=== PATIENT | female | born 1955 | race Caucasian/White ===

== ENCOUNTER 2018-01-20 18:57 | Emergency (ER) | payer OTHER ==
[2018-01-20] MEDS ORDERED: NA CHLORIDE 0.9% 1,000 ML ONE (19:25)
[2018-01-20] MEDS ORDERED: METOCLOPRAMIDE 10 MG/2mL INJ ONE (19:25)
[2018-01-20] MEDS ORDERED: KETOROLAC 30 MG/ML INJ ONE (19:25)
[2018-01-20] MEDS ORDERED: DIPHENHYDRAMINE 50 MG/ML VIAL ONE (19:32)
--- NOTE | 2018-01-20 21:00 | ER ---
Nurse's Notes [facility] Name: Una Vickers Age: 62 yrs Sex: Female : 1955 Arrival Date: 01/20/2018 Time: 19:00 Bed 13 Private MD: None, None Diagnosis: Migraine Presentation: 01/20 19:04 Presenting complaint: Patient states: "Migraine for several days and it keeps getting aj1 worse, now IM really sick to my stomach and I can't take my medications" Reports headache, nausea, vomiting, photophobia for the past 2 days. Reports this headache as being similar to previous migraines. Transition of care: patient was not received from another setting of care. Onset of symptoms was January 18, 2018. Risk Assessment: Do you want to hurt yourself or someone else? Patient reports no desire to harm self or others. Initial Sepsis Screen: Does the patient meet any 2 criteria? No. Patient's initial sepsis screen is negative. Does the patient have a suspected source of infection? No. Patient's initial sepsis screen is negative. Care prior to arrival: None. 19:04 Method Of Arrival: Ambulatory [facility] 19:04 Acuity: JENNIFER 3 aj1 Triage Assessment: 19:09 Headache History: The patient has had previous headaches and this one is similar to aj1 previous episodes. General: Appears in no apparent distress. uncomfortable, Behavior is calm, cooperative, appropriate for age. Pain: Complains of pain in right episcopal and left episcopal Pain currently is 10 out of 10 on a pain scale. Pain began 2-3 days ago. Also complains of nausea. Neuro: Level of Consciousness is awake, alert, obeys commands, Oriented to person, place, time, situation, Speech is normal, Reports headache photophobia. Cardiovascular: Patient's skin is warm and dry. Respiratory: Airway is patent Respiratory effort is even, unlabored, Respiratory pattern is regular, symmetrical. Historical: - Allergies: : No Known Allergies; aj1 - Home Meds: 19: baclofen 10 mg Oral tab 1 tab 3 times per day [Active]; nortriptyline 25 mg Oral cap 1 aj1 cap at bedtime [Active]; omeprazole 20 mg Oral cpDR 1 cap once daily [Active]; carbamazepine 200 mg Oral CM12 1 cap 2 times per day [Active]; sumatriptan 100 mg daily [Active]; - PMHx: 19:09 Migraines; GERD; trigeminal neuralgia; aj1 - PSHx: 19:09 Cholecystectomy; Hysterectomy; aj1 - Immunization history:: Flu vaccine is not up to date. - Social history:: Smoking status: Patient/guardian denies using tobacco. - Ebola Screening: : Patient denies travel to an Ebola-affected area in the 21 days before illness onset. Screenin:23 Abuse screen: Denies threats or abuse. Nutritional screening: No deficits noted. ea Tuberculosis screening: No symptoms or risk factors identified. Fall Risk IV access (20 points). Assessment: 19:22 General: Appears in no apparent distress. comfortable, Behavior is calm, cooperative, aa1 appropriate for age. Pain: Complains of pain in left episcopal and right episcopal Pain currently is 10 out of 10 on a pain scale. Quality of pain is described as throbbing, Pain began 1 day ago. Is continuous. Neuro: Level of Consciousness is awake, alert, obeys commands, Oriented to person, place, time, situation, Moves all extremities. Full function Gait is steady, Speech is normal, Facial symmetry appears normal, Pupils are PERRLA, Reports headache photophobia. Respiratory: Airway is patent Respiratory effort is even, unlabored, Respiratory pattern is regular, symmetrical. GI: Reports nausea, vomiting. : No signs and/or symptoms were reported regarding the genitourinary system. EENT: No signs and/or symptoms were reported regarding the EENT system. Derm: Skin is intact, is healthy with good turgor, Skin is pink, warm \\T\\ dry. Musculoskeletal: Capillary refill < 3 seconds. 20:45 Reassessment: Patient appears in no apparent distress at this time. Patient and/or aa1 family updated on plan of care and expected duration. Pain level reassessed. Patient is alert, oriented x 3, equal unlabored respirations, skin warm/dry/pink. Awaiting provider reassessment Patient states symptoms have not improved. 21:08 Reassessment: Patient appears in no apparent distress at this time. Patient is alert, aa1 oriented x 3, equal unlabored respirations, skin warm/dry/pink. Discussed d/c \\T\\ f/u instructions with pt \\T\\ spouse; denies questions or concerns at this time Patient states symptoms have improved. Vital Signs: 19:09 BP 160 / 88; Pulse 78; Resp 18; Temp 97.7(TE); Pulse Ox 97% on R/A; Weight 70.31 kg aj1 (R); Height 5 ft. 2 in. (157.48 cm) (R); Pain 10/10; 20:07 BP 162 / 82; Pulse 71; Resp 18; Pulse Ox 95% ; Pain 9/10; aa1 20:45 BP 160 / 84; Pulse 74; Resp 18; Pulse Ox 96% on R/A; aa1 19:09 Body Mass Index 28.35 (70.31 kg, 157.48 cm) aj ED Course: 19:00 Patient arrived in ED. mr 19:00 None, None is Private Physician. mr 19:06 Triage completed. aj1 19:09 Arm band placed on Patient placed in an exam room. aj1 19:10 Alexei Fajardo PA is PHCP. [facility] 19:10 Abdulaziz Holland MD is Attending Physician. [facility] 19:17 Steph Barragan RN is Primary Nurse. aa1 19:21 Patient has correct armband on for positive identification. Bed in low position. Call aa1 light in reach. Pulse ox on. NIBP on. Warm blanket given. 19:23 Inserted saline lock: 22 gauge in right antecubital area, using aseptic technique. ea 20:31 PHCP role handed off by Alexei Fajardo PA snw 20:31 Kendra Dey FNP-C is PHCP. snw 21:08 No provider procedures requiring assistance completed. IV discontinued, intact, aa1 bleeding controlled, No redness/swelling at site. Pressure dressing applied. Administered Medications: 19:41 Drug: diphenhydrAMINE 12.5 mg Route: IVP; Site: right antecubital; ea 20:08 Follow up: Response: No adverse reaction aa1 19:41 Drug: Ketorolac 30 mg Route: IVP; Site: right antecubital; ea 20:08 Follow up: Response: No adverse reaction; Pain is unchanged, physician notified aa1 19:42 Drug: NS 0.9% 1000 ml Route: IV; Rate: 1 bolus; Site: right antecubital; ea 21:00 Follow up: IV Status: Completed infusion aa1 19:42 Drug: Reglan 20 mg Route: IVP; Site: right antecubital; ea 20:08 Follow up: Response: Nausea is decreased aa1 21:00 Drug: Valium 2 mg Route: PO; ea 21:08 Follow up: Response: Medication administered at discharge. aa1 Outcome: 20:59 Discharge ordered by . lamar 21:08 Discharged to home ambulatory, with family, with significant other. aa1 21:08 Condition: good 21:08 Discharge instructions given to patient, family, significant other, Instructed on discharge instructions, follow up and referral plans. medication usage, Demonstrated understanding of instructions, follow-up care, medications, Prescriptions given X 1. 21:10 Patient left the ED. aa1 Signatures: Radha Miller RN RN aj1 Steph Barragan RN RN aa1 Kendra Dey, CUSTOMER CARE COORDINATOR-C CUSTOMER CARE COORDINATOR-Csnw Alexei Fajardo PA PA jmm Rivera, Maria mr Antunez, Elena, RN RN ea
--- NOTE | 2018-01-20 21:00 | EDPHYS ---
Physician Documentation [facility] Name: Una Vickers Age: 62 yrs Sex: Female : 1955 Arrival Date: 01/20/2018 Time: 19:00 Bed 13 Private MD: None, None ED Physician Abdulaziz Holland HPI: 01/20 19:21 This 62 yrs old Female presents to ER via Ambulatory with complaints of jmm Headache. 19:21 The patient complains of pain to the top of head, forehead, right voodoo, left voodoo, jmm left frontal area and left temporal area. The patient describes the headache as aching. Onset: The symptoms/episode began/occurred gradually, 2 day(s) ago. Associated signs and symptoms: Pertinent positives: nausea, Photophobia. This is a 62 year old female with a history of migraines, trigeminal neuralgia that presents to the ED with headache, vomiting, photosensitivity, for the past 2 days. Patient states she has no relief with home medications. Patient states having similar headaches in the past. . Historical: - Allergies: 19:09 No Known Allergies; aj1 - Home Meds: 19:09 baclofen 10 mg Oral tab 1 tab 3 times per day [Active]; nortriptyline 25 mg Oral cap 1 aj1 cap at bedtime [Active]; omeprazole 20 mg Oral cpDR 1 cap once daily [Active]; carbamazepine 200 mg Oral CM12 1 cap 2 times per day [Active]; sumatriptan 100 mg daily [Active]; - PMHx: 19:09 Migraines; GERD; trigeminal neuralgia; aj1 - PSHx: 19:09 Cholecystectomy; Hysterectomy; aj1 - Immunization history:: Flu vaccine is not up to date. - Social history:: Smoking status: Patient/guardian denies using tobacco. - Ebola Screening: : Patient denies travel to an Ebola-affected area in the 21 days before illness onset. ROS: 20:09 Constitutional: Negative for fever, chills, and weight loss, Cardiovascular: Negative jmm for chest pain, palpitations, and edema, Respiratory: Negative for shortness of breath, cough, wheezing, and pleuritic chest pain, Abdomen/GI: Negative for abdominal pain, nausea, vomiting, diarrhea, and constipation, Back: Negative for injury and pain, MS/Extremity: Negative for injury and deformity, Skin: Negative for injury, rash, and discoloration. 20:09 Neuro: Positive for headache. 20:09 All other systems are negative. Exam: 20:09 Head/Face: atraumatic. Chest/axilla: Normal chest wall appearance and motion. [facility] Cardiovascular: Regular rate and rhythm. No edema appreciated Respiratory: Normal respirations, no respiratory distress appreciated Abdomen/GI: Non distended, soft 20:09 Constitutional: The patient appears in no acute distress, alert, awake. 20:09 Skin: Appearance: Color: normal in color. 20:09 Neuro: Orientation: is normal, Mentation: is normal, Memory: is normal, Motor: is normal, Gait: is steady. Vital Signs: 19:09 BP 160 / 88; Pulse 78; Resp 18; Temp 97.7(TE); Pulse Ox 97% on R/A; Weight 70.[address] [facility] [place] (R); Height 5 ft. 2 in. (157.48 cm) (R); Pain 10/10; 20:07 BP 162 / 82; Pulse 71; Resp 18; Pulse Ox 95% ; Pain 9/10; aa1 20:45 BP 160 / 84; Pulse 74; Resp 18; Pulse Ox 96% on R/A; aa1 19:09 Body Mass Index 28.35 (70.31 kg, 157.48 cm) [facility] [place] MDM: 19:13 Patient medically screened. [facility] 20:11 Data reviewed: vital signs, nurses notes. [facility] 20:22 Transition of care: After a detail discussion of the patient's case, care [facility] Administered Medications: 19:41 Drug: diphenhydrAMINE 12.5 mg Route: IVP; Site: right antecubital; ea 20:08 Follow up: Response: No adverse reaction aa1 19:41 Drug: Ketorolac 30 mg Route: IVP; Site: right antecubital; ea 20:08 Follow up: Response: No adverse reaction; Pain is unchanged, physician notified aa1 19:42 Drug: NS 0.9% 1000 ml Route: IV; Rate: 1 bolus; Site: right antecubital; ea 21:00 Follow up: IV Status: Completed infusion aa 19:42 Drug: Reglan 20 mg Route: IVP; Site: right antecubital; ea 20:08 Follow up: Response: Nausea is decreased aa1 21:00 Drug: Valium 2 mg Route: PO; ea 21:08 Follow up: Response: Medication administered at discharge. aa1 Disposition: 21:21 Co-signature as Attending Physician, Abdulaziz Holland MD. megan Disposition: 01/20/18 20:59 Discharged to Home. Impression: Migraine. - Condition is Stable. - Discharge Instructions: Migraine Headache. - Prescriptions for promethazine 25 mg Oral Tablet - take 1 tablet by ORAL route every 6 hours As needed; 20 tablet. - Medication Reconciliation Form, Thank You Letter, Antibiotic Education, Prescription Opioid Use form. - Follow up: Private Physician; When: 2 - 3 days; Reason: Continuance of care. Signatures: Radha Miller RN RN [email or web address] Steph Barragan RN RN aa1 Abdulaziz Holland MD MD pkKendra Oreilly, MAINTENANCE AND ENGINEERING MANAGER-C MAINTENANCE AND ENGINEERING MANAGER-Csnw Alexei Fajardo PA PA jmm Antunez, Elena, RN RN ea Corrections: (The following items were deleted from the chart) 21:10 20:59 01/20/2018 20:59 Discharged to Home. Impression: Migraine. Condition is Stable. aa1 Discharge Instructions: Migraine Headache. Forms are Medication Reconciliation Form, Thank You Letter, Antibiotic Education, Prescription Opioid Use. Follow up: Private Physician; When: 2 - 3 days; Reason: Continuance of care. snw
[2018-01-20] MEDS ORDERED: DIAZEPAM 2 MG TABLET ONE (21:04)
== END 2018-01-20 21:10 | disposition home or self-care (01) ==
LOC: ER 18:57
DX: G43.909 Migraine, unspecified, not intractable, without status migrainosus (principal)
CPT/HCPCS: 96361; 96374; 96375; 99284; J2765; J7030

== ENCOUNTER 2021-12-28 12:38 | Inpatient (IN) | payer OTHER ==
[2021-12-28] MEDS ORDERED: FAMOTIDINE 20 MG/2 ML VIAL IV ONE (14:16)
[2021-12-28] MEDS ORDERED: ONDANSETRON 4 MG/2 ML VIAL ONE (14:16)
[2021-12-28 14:45] LABS: Absolute Lymphocytes (CBC) 1.2 K/uL (0.7-4.9); Hematocrit 38.9 % (36.0-45.0); Lymphocytes % 16.3 % (15.3-44.8); MCV 91.8 fL (80-100); MPV 7.7 fL (7.6-11.3); RBC Red Blood Cell Count 4.23 M/uL (3.86-4.86)
--- NOTE | 2021-12-28 14:45 | RAD REPORT ---
EXAM DESCRIPTION: RAD - Chest Single View - 12/28/2021 2:16 pm CLINICAL HISTORY: vomiting COMPARISON: Two view chest November 2018 and September 2018 TECHNIQUE: AP portable chest image was obtained 12/28/2021 2:16 pm . FINDINGS: Patient has extensive interstitial lung disease as a baseline. This is accentuated due to lower lung volume on today's study. Lung markings of the left upper lobe appears slightly more promin ent even when adjusting for the inspiration differences. Trachea is midline. Heart and vasculature are normal. No measurable pleural effusion and no pneumotho rax. No acute bony abnormality seen. No acute aortic findings suspected. IMPRESSION: Questionable left upper lobe small or early pneumonia superimposed on extensive intersti tial lung disease. Extensive interstitial lung pattern is increased over prior imaging. This may be artifact of low lung volume. Superimposed diffuse interstitial edema or infiltrate would certainly be possible.
[2021-12-28 14:53] LABS: Urine Bacteria <20 /HPF (<20); Urine Mucus 2+ /HPF (NONE SEEN); Urine RBC <5 /HPF (NONE SEEN)
[2021-12-28 14:59] LABS: Albumin 3.6 g/dL (3.4-5.0); Bilirubin Total 0.3 mg/dL (0.2-1.0); Magnesium 1.8 mg/dL (1.8-2.4); Phosphorus 2.5 mg/dL (2.5-4.9); Potassium 3.9 mmol/L (3.5-5.1)
[2021-12-28] MEDS ORDERED: NA CHLORIDE 0.9% 500 ML ONE (15:46)
[2021-12-28] MEDS ORDERED: NA CHLORIDE 0.9% 1,000 ML ONE (15:46)
--- NOTE | 2021-12-28 15:59 | RAD REPORT ---
EXAM DESCRIPTION: CT - Abdomen Pelvis W Contrast - 12/28/2021 3:29 pm CLINICAL HISTORY: LLQ abdominal pain COMPARISON: Thorax Wo Con dated 04/01/2021 TECHNIQUE: Biphasic, helical CT imaging of the abdomen and pelvis was performed following 100 ml non -ionic IV contrast. No oral contrast administered. All CT scans are performed using dose optimization technique as appropriate and may include automated exposure control or mA/KV adjustment according to patient size. FINDINGS: Interstitial thickening is present in both lower lung elizabeth. Left-side findings are not s ignificantly different from the 2020 comparison. Right lung field findings are fractionally worse. Th is could be asymmetric progression of fibrosis or more commonly acute interstitial infiltrate. Asymme tric interstitial edema is possible. No pneumothorax or pleural effusion. No pericardial effusion. The liver, spleen, and pancreas show no suspicious findings. Left lobe and right lobe liver cysts are unchanged from prior imaging. Cholecystectomy clips are present. No abnormal biliary tree dilatation . Symmetric renal function is seen with no hydronephrosis or suspicious renal mass. No pyelonephritis o r acute parenchymal process. No bladder abnormalities. No adrenal abnormalities. Numerous pelvic floo r phleboliths are present. Numerous calcifications are seen at the vaginal cuff. Uterus is absent. Ov bianka are absent or atrophic. No dilated bowel loops or bowel wall thickening. Small hiatal hernia is present. No acute bowel findi ng. No free air, free fluid or inflammatory stranding. No hernia, mass or bulky lymphadenopathy. Degenerative bony changes are present without acute bone or disc finding. IMPRESSION: Contrast enhanced CT abdomen and pelvis showing no acute or emergent finding in the abdo men or pelvis. Patient has baseline interstitial fibrotic change. Stranding in the right base is more prominent than seen March 2021. Mild interstitial infiltrate is suspected. Asymmetric progressive fibrosis or asy mmetric interstitial edema are lesser considerations.
--- NOTE | 2021-12-28 16:42 | ER ---
Nurse's Notes [facility] Name: Una Vickers Age: 66 yrs Sex: Female : 1955 Arrival Date: 12/28/2021 Time: 12:39 Bed 8 Private MD: Diagnosis: Hypo-osmolality and hyponatremia;Other pneumonia, unspecified organism Presentation: 12/28 13:30 Chief complaint: Patient states: been throwing up for 8 days, started a new medicine iw nifedipine and chlorthalidone about two weeks ago, has been taking zofran but not helping. Coronavirus screen: Client presents with at least one sign or symptom that may indicate coronavirus-19. Ebola Screen: Patient negative for fever greater than or equal to 101.5 degrees Fahrenheit, and additional compatible Ebola Virus Disease symptoms Patient denies exposure to infectious person. Patient denies travel to an Ebola-affected area in the 21 days before illness onset. No symptoms or risks identified at this time. Initial Sepsis Screen: Does the patient meet any 2 criteria? No. Patient's initial sepsis screen is negative. Does the patient have a suspected source of infection? No. Patient's initial sepsis screen is negative. Risk Assessment: Do you want to hurt yourself or someone else? Patient reports no desire to harm self or others. Onset of symptoms was December 20, 2021. 13:30 Method Of Arrival: Wheelchair 13:30 Acuity: JENNIFER 3 iw Historical: - Allergies: 13:32 NKA; iw - PMHx: 13:32 GERD; Migraines; trigeminal neuralgia; iw - Immunization history:: Adult Immunizations Client reports receiving the 2nd dose of the Covid vaccine. - Social history:: Smoking status: . Screenin:33 Abuse screen: Denies threats or abuse. Denies injuries from another. Nutritional ld1 screening: No deficits noted. Tuberculosis screening: No symptoms or risk factors identified. Fall Risk None identified. Assessment: 14:33 General: Appears in no apparent distress. comfortable, Behavior is calm, cooperative, ld1 appropriate for age. Pain: Complains of pain in abdomen Pain does not radiate. Pain currently is 8 out of 10 on a pain scale. Quality of pain is described as throbbing. Neuro: Level of Consciousness is awake, alert, obeys commands, Oriented to person, place, time, situation. Cardiovascular: Capillary refill < 3 seconds Patient's skin is warm and dry. Rhythm is sinus rhythm. Respiratory: Airway is patent Respiratory effort is even, unlabored. GI: Abdomen is round non-distended, Reports lower abdominal pain, nausea. : No signs and/or symptoms were reported regarding the genitourinary system. EENT: No signs and/or symptoms were reported regarding the EENT system. Derm: No signs and/or symptoms reported regarding the dermatologic system. Musculoskeletal: No signs and/or symptoms reported regarding the musculoskeletal system. 16:00 Reassessment: Patient appears in no apparent distress at this time. Patient and/or ld1 family updated on plan of care and expected duration. Pain level reassessed. Patient is alert, oriented x 3, equal unlabored respirations, skin warm/dry/pink. 20:10 Reassessment: Patient appears in no apparent distress at this time. No changes from ld1 previously documented assessment. Patient is alert, oriented x 3, equal unlabored respirations, skin warm/dry/pink. Vital Signs: 13:30 BP 116 / 58; Pulse 65; Resp 16; Temp 97.5; Pulse Ox 96% on 2 lpm NC; iw 14:33 BP 140 / 66; Pulse 62; Resp 18; Pulse Ox 100% on R/A; ld1 16:05 BP 121 / 73; Pulse 77; Resp 18; Pulse Ox 94% on R/A; ld1 16:39 BP 105 / 93; Pulse 79; Resp 21; Pulse Ox 91% on R/A; ld1 18:10 BP 122 / 80; Pulse 71; Resp 18; Pulse Ox 100% on R/A; ld1 20:10 BP 116 / 81; Pulse 73; Resp 18; Pulse Ox 97% on 3 lpm NC; ld1 ED Course: 12:39 Patient arrived in ED. am2 13:23 Vahid Mehta PA is PHCP. cp 13:23 Vahid Conte MD is Attending Physician. cp 13:32 Triage completed. iw 13:33 Arm band placed on. iw 13:59 Sara Abraham, VENESSA is Primary Nurse. ld1 14:18 XRAY Chest (1 view) In Process Unspecified. EDMS 14:33 Patient has correct armband on for positive identification. Placed in gown. Bed in low ld1 position. Call light in reach. Side rails up X2. awake overnight monitor on. Pulse ox on. NIBP on. Door closed. Noise minimized. Warm blanket given. 14:33 No provider procedures requiring assistance completed. Inserted saline lock: 20 gauge ld1 antecubital area, using aseptic technique. Blood collected. 14:35 COVID-19 SARS RT PCR (Document "Date of Onset" if Symptomatic) Sent. ld1 15:30 CT Abd/Pelvis - IV Contrast Only In Process Unspecified. EDMS 16:41 Jorge Sawant is Hospitalizing Provider. cp 18:45 Inserted saline lock: 20 gauge in left antecubital area, using aseptic technique. Blood ld1 collected. 20:11 Patient admitted, IV remains in place. ld1 Administered Medications: 14:57 Drug: Pepcid (famotidine) 20 mg Route: IVP; Site: right antecubital; ha1 14:58 Drug: Zofran (Ondansetron) 4 mg Route: IVP; Site: right antecubital; ha1 16:05 Drug: NS 0.9% 1000 ml Route: IV; Rate: 75 ml/hr; Site: right antecubital; ld1 16:05 Drug: NS 0.9% 500 ml Route: IV; Rate: bolus; Site: right antecubital; ld1 17:22 Drug: Zithromax (azithromycin) 500 mg Route: IVPB; Infused Over: 1 hrs; Site: right ld1 antecubital; 17:22 Drug: Rocephin - (cefTRIAXone) 1 grams Route: IVPB; Infused Over: 30 mins; Site: right ld1 antecubital; Medication: 14:33 VIS not applicable for this client. ld1 Outcome: 16:42 Decision to Hospitalize by Provider. cp 20:10 Admitted to Med/surg accompanied by tech, via wheelchair, room 206, with chart, Report ld1 called to VENESSA Estrada 20:10 Condition: stable 20:16 Patient left the ED. ld1 Signatures: Dispatcher [employer] EDShonda Chandler RN RN iw Vahid Mehta PA PA cp Deb Ruffin am2 Sara Abraham RN RN ld1 Moira Leal RN RN [facility]
--- NOTE | 2021-12-28 16:42 | EDPHYS ---
Physician Documentation [facility] Name: Una Vickers Age: 66 yrs Sex: Female : 1955 Arrival Date: 12/28/2021 Time: 12:39 Bed 8 Private MD: JOANA Physician Vahid Conte HPI: 12/28 13:55 This 66 yrs old Female presents to ER via Wheelchair with complaints of Nausea/Vomiting.cp 13:55 The patient presents with abdominal pain. cp 13:55 The symptoms do not radiate. Associated signs and symptoms: Pertinent positives: nausea cp and vomiting times 8 days, Pertinent negatives: blood in stools, constipation, diarrhea, fever, vomiting blood. The symptoms are described as constant. Historical: - Allergies: 13:32 NKA; iw - PMHx: 13:32 GERD; Migraines; trigeminal neuralgia; iw - Immunization history:: Adult Immunizations Client reports receiving the 2nd dose of the Covid vaccine. - Social history:: Smoking status: . ROS: 14:00 Constitutional: Positive for poor PO intake, Negative for chills, fever. cp 14:00 Eyes: Negative for injury, pain, redness, and discharge. cp 14:00 ENT: Negative for drainage from ear(s), ear pain, sore throat, difficulty swallowing, difficulty handling secretions. 14:00 Cardiovascular: Negative for chest pain, edema, palpitations. 14:00 Respiratory: Negative for cough, shortness of breath, wheezing. 14:00 Abdomen/GI: Positive for abdominal pain, nausea and vomiting, anorexia, Negative for diarrhea, constipation, hematemesis, black/tarry stool, rectal bleeding. 14:00 : Negative for urinary symptoms. 14:00 Neuro: Negative for altered mental status, dizziness, headache, syncope, weakness. 14:00 All other systems are negative. Exam: 14:05 Constitutional: The patient appears in no acute distress, alert, awake, cp non-diaphoretic, non-toxic, well developed, well nourished. 14:05 Head/Face: Normocephalic, atraumatic. cp 14:05 Eyes: Periorbital structures: appear normal, Pupils: equal, round, and reactive to light and accomodation, Extraocular movements: intact throughout, Conjunctiva: normal, no exudate, no injection, Sclera: no appreciated abnormality, Lids and lashes: appear normal, bilaterally. 14:05 ENT: External ear(s): are unremarkable, Nose: is normal, Mouth: Lips: moist, Oral mucosa: moist, Posterior pharynx: Airway: no evidence of obstruction, patent. 14:05 Chest/axilla: Inspection: normal. 14:05 Cardiovascular: Rate: normal, Rhythm: regular, Edema: is not appreciated, JVD: is not appreciated. 14:05 Respiratory: the patient does not display signs of respiratory distress, Respirations: normal, no use of accessory muscles, no retractions, labored breathing, is not present, Breath sounds: are clear throughout, no decreased breath sounds, no stridor, no wheezing. 14:05 Abdomen/GI: Inspection: abdomen appears normal, Bowel sounds: active, all quadrants, Palpation: soft, in all quadrants, mild abdominal tenderness, in the epigastric area, rebound tenderness, is not appreciated, voluntary guarding, is not appreciated, involuntary guarding, is not appreciated. 14:05 Back: CVA tenderness, is absent. 14:05 Skin: cellulitis, is not appreciated, no rash present. 14:05 Neuro: Orientation: to person, place \\T\\ time. Mentation: is normal, Cerebellar function: is grossly normal, Motor: moves all fours, strength is normal, Sensation: is normal. Vital Signs: 13:30 BP 116 / 58; Pulse 65; Resp 16; Temp 97.5; Pulse Ox 96% on 2 lpm NC; iw 14:33 BP 140 / 66; Pulse 62; Resp 18; Pulse Ox 100% on R/A; ld1 16:05 BP 121 / 73; Pulse 77; Resp 18; Pulse Ox 94% on R/A; ld1 16:39 BP 105 / 93; Pulse 79; Resp 21; Pulse Ox 91% on R/A; ld1 18:10 BP 122 / 80; Pulse 71; Resp 18; Pulse Ox 100% on R/A; ld1 20:10 BP 116 / 81; Pulse 73; Resp 18; Pulse Ox 97% on 3 lpm NC; ld1 MDM: 13:45 Patient medically screened. cp 16:40 Data reviewed: vital signs, nurses notes, lab test result(s), EKG, radiologic studies, cp CT scan, plain films. 16:40 Test interpretation: by ED physician or midlevel provider: ECG, plain radiologic cp studies. Physician consultation: Jorge Sawant was called at 16:35, was contacted at 16:35, regarding admission, to the telemetry unit. patient's condition, and will see patient in ED, shortly. 12/28 13:55 Order name: CBC with Diff; Complete Time: 15:02 12/28 13:55 Order name: CMP; Complete Time: 15:02 12/28 15:02 Interpretation: Normal except: NA 119; CL 82; GLUC 112; CA 8.4. cp 12/28 13:55 Order name: Lipase; Complete Time: 15:02 12/28 13:55 Order name: Urine Microscopic Only; Complete Time: 15:02 12/28 15:03 Interpretation: Normal except: UWBC 5-10; SQEPI 5-10. 12/28 13:55 Order name: Magnesium; Complete Time: 15:02 12/28 13:55 Order name: Phosphorus; Complete Time: 15:02 12/28 13:55 Order name: CT Abd/Pelvis - IV Contrast Only; Complete Time: 16:28 12/28 13:57 Order name: COVID-19 SARS RT PCR (Document "Date of Onset" if Symptomatic); Complete cp Time: 16:28 12/28 14:57 Order name: Urine Culture [facility] 12/28 16:43 Order name: Tegretol Level 12/28 16:43 Order name: Procalcitonin 12/28 16:43 Order name: Lactate 12/28 16:43 Order name: Blood Culture Adult (2) 12/28 19:35 Order name: Osmolality, Serum [facility] 12/28 13:55 Order name: IV Saline Lock; Complete Time: 14:35 12/28 13:55 Order name: Labs collected and sent; Complete Time: 14:35 12/28 13:55 Order name: Urine Dipstick-Ancillary (obtain specimen); Complete Time: 14:35 12/28 13:55 Order name: XRAY Chest (1 view); Complete Time: 15:02 cp Administered Medications: 14:57 Drug: Pepcid (famotidine) 20 mg Route: IVP; Site: right antecubital; ha1 14:58 Drug: Zofran (Ondansetron) 4 mg Route: IVP; Site: right antecubital; ha1 16:05 Drug: NS 0.9% 1000 ml Route: IV; Rate: 75 ml/hr; Site: right antecubital; ld1 16:05 Drug: NS 0.9% 500 ml Route: IV; Rate: bolus; Site: right antecubital; ld1 17:22 Drug: Zithromax (azithromycin) 500 mg Route: IVPB; Infused Over: 1 hrs; Site: right ld1 antecubital; 17:22 Drug: Rocephin - (cefTRIAXone) 1 grams Route: IVPB; Infused Over: 30 mins; Site: right ld1 antecubital; Disposition Summary: 12/28/21 16:42 Hospitalization Ordered Hospitalization Status: Inpatient Admission cp Provider: Jorge Sawant cp Location: Telemetry/MedSurg (Inpatient) cp Condition: Stable cp Problem: new cp Symptoms: have improved cp Bed/Room Type: Standard cp Room Assignment: 206(12/28/21 18:51) Diagnosis - Hypo-osmolality and hyponatremia cp - Other pneumonia, unspecified organism cp Forms: - Medication Reconciliation Form cp - SBAR form cp Addendum: 01/01/2022 14:06 Co-signature as Attending Physician, Vahid Conte MD I agree with the assessment and c cates plan of care. Signatures: Dispatcher [employer] Yuliana Borden RN Vahid Melo MD MD cha Williams, Irene RN Vahid Payne PA PA cp Sara Abraham RN RN ld1 Moira Leal RN RN 1 Corrections: (The following items were deleted from the chart) 12/28 18:51 16:42 cp dw
[2021-12-28] MEDS ORDERED: CEFTRIAXONE 1000 MG/VIAL ONE (17:21)
[2021-12-28] MEDS ORDERED: AZITHROMYCIN 500 MG INJ IVPB ONE (17:21)
[2021-12-28] MEDS ORDERED: NA CHLORIDE 0.9% 250 ML ONE (17:21)
[2021-12-28] MEDS: carvediloL 12.5 MG TAB PO SCH (18:00)
[2021-12-28] MEDS ORDERED: SUMATRIPTAN SUCCI 50 MG TAB PO PRN ×2 (18:00→18:23)
--- NOTE | 2021-12-28 18:08 | P.HP ---
Certification for Inpatient Patient admitted to: Inpatient With expected LOS: >2 Midnights Practitioner: I am a practitioner with admitting privileges, knowledge of patient current condition, hospital course, and medical plan of care. Services: Services provided to patient in accordance with Admission requirements found in Title 42 Section 412.3 of the Code of Federal Regulations Patient History Date of Service: 12/28/21 Reason for admission: Nausea, vomiting and abdominal pain History of Present Illness: 66-year-old woman with a history of pulmonary fibrosis, pulmonary hypertension, trigeminal neuralgia presented to the emergency department with a complaint of nausea vomiting of 6-days duration followed by abdominal pain of onset 2 days ago. Patient also reports constipation. She stated she has not been able to tolerate food or drink and apart poor oral intake. Work-up in the emergency department revealed hyponatremia with sodium level of 119. Patient states that she has chronic hyponatremia from taking carbamazepine for trigeminal neuralgia. CT chest abdomen pelvis done to evaluate abdominal pain demonstrated a streak of pneumonia in the left lung. No significant abdominal pathology to explain her abdominal pain except constipation. She has no leukocytosis and denies any fever, no sepsis. ED provider wishes to admit the patient for further managemen t of hyponatremia and pneumonia. Patient denied any diarrhea but endorsed constipation. Allergies No Known Allergies Allergy (Unverified 01/20/18 21:13) - Past Medical/Surgical History -: Trigeminal neuralgia -: Pulmonary fibrosis -: Hypertension - Family History Mother -: Heart disease Sister -: Cancer - Social History Smoking Status: Never smoker Alcohol use: No Place of Residence: Home Review of Systems Other: Patient denied any fever. She endorsed intermittent left facial pain from trigeminal neuralgia. Except as documented, all other systems reviewed and negative. Physical Examination - Physical Exam General: Alert, In no apparent distress, Oriented x3 HEENT: Atraumatic, PERRLA, Mucous membr. moist/pink, Sclerae nonicteric Neck: Supple, JVD not distended, No Thyromegaly Respiratory: Clear to auscultation bilaterally, Normal air movement Cardiovascular: No edema, Regular rate/rhythm, Normal S1 S2, No murmurs Capillary refill: <2 Seconds Gastrointestinal: Normal bowel sounds, Soft and benign, Non-distended, No tenderness Musculoskeletal: No swelling, No tenderness Integumentary: No rashes, No erythema, No cyanosis Neurological: Normal speech, Normal strength at 5/5 x4 extr, Normal affect Lymphatics: No axilla or inguinal lymphadenopathy - Studies Laboratory Data (last 24 hrs) 12/28/21 14:25: Sodium 119 L*, Potassium 3.9, BUN 10, Creatinine 0.64, Glucose 112 H, Phosphorus 2.5, Magnesium 1.8, Total Bilirubin 0.3, AST 22, ALT 41, Alkaline Phosphatase 83, Lipase 173 12/28/21 14:25: WBC 7.5, Hgb 13.4, Hct 38.9, Plt Count 235 Assessment and Plan - Problems (Diagnosis) (1) Hyponatremia Current Visit: Yes Status: Acute (2) Pneumonia Current Visit: Yes Status: Acute (3) Pulmonary fibrosis Current Visit: Yes Status: Acute (4) Trigeminal neuralgia Current Visit: Yes Status: Acute (5) Functional constipation Current Visit: Yes Status: Acute (6) Abdominal pain Current Visit: Yes Status: Acute (7) UTI (urinary tract infection) Current Visit: Yes Status: Acute - Plan Patient with hyponatremia with associated hypochloremia. Differential diagnosis include SIADH versus dehydration from nausea and vomiting. Possible causes of SIADH include carbamazepine use, pulmonary fibro Admit patient to the medical floor Check urine and serum osmolality, check urine sodium. Check TSH as part of work-up for hyponatremia. Will hydrate with normal saline to see how she responds. Monitor BMP every 6 hours Nephrology consult Start IV Levaquin for pneumonia and UTI. Follow urine culture Stool softeners and laxatives for constipation. Continue antihypertensives. Hold chlorthalidone. Carbamazepine level requested. Bronchodilators for pulmonary fibrosis Oxygen saturation is stable on home oxygen-2 L by nasal cannula. - Advance Directives Does patient have a Living Will: No Does patient have a Durable POA for Healthcare: No
[2021-12-28] MEDS: IPRATROPIUM BROM 0.5MG/2.5ML NEB SCH (19:40)
[2021-12-28] MEDS ORDERED: PROMETHAZINE 25 MG TABLET PO PRN (20:10)
[2021-12-28] MEDS ORDERED: ACETAMINOPHEN 500 MG TAB PO PRN (20:10)
[2021-12-28] MEDS ORDERED: Levofloxacin 750mg IV 750 MG/150 ML BAG IV SCH ×2 (20:10→21:00)
[2021-12-28] MEDS ORDERED: POLYETHYL GLY 3350 17 GM/DOSE PO PRN (20:10)
[2021-12-28] MEDS ORDERED: ONDANSETRON 4 MG/2 ML VIAL IV PRN (20:10)
[2021-12-28] MEDS ORDERED: ALBUTEROL 2.5 MG/3 ML NEB SOL NEB PRN (20:10)
[2021-12-28 20:43] VITALS: BMI 29.2
[2021-12-28] MEDS: carBAMazepine 200 MG TAB PO SCH (21:00)
[2021-12-28] MEDS: HYDRALAZINE HCL 25 MG TABLET PO SCH (21:00)
[2021-12-28] MEDS: NORTRIPTYLINE HCL 25 MG CAP PO SCH (21:00)
[2021-12-28] MEDS: LACTULOSE 20 GM/30 ML UCUP PO SCH (21:00)
[2021-12-28] MEDS: ROSUVASTATIN 10 MG TAB PO SCH (21:00)
[2021-12-28] MEDS: NIFEDIPINE XL 60 MG TABLET PO SCH (21:00)
[2021-12-28] MEDS: SILDENAFIL CITRATE 20 MG TABLET PO SCH (21:00)
[2021-12-28] MEDS: cloNIDine HCL 0.1 MG TAB PO SCH (21:00)
[2021-12-28] MEDS: lisinopriL 20 MG TAB PO SCH (21:00)
[2021-12-28] MEDS: SENOSIDES 8.6 MG TAB PO SCH (21:32)
[2021-12-28] MEDS: NA CHLORIDE 0.9% 1,000 ML IV SCH (21:33)
[2021-12-29] MEDS: IPRATROPIUM BROM 0.5MG/2.5ML NEB SCH ×3 (02:00→13:39)
[2021-12-29] MEDS: carvediloL 12.5 MG TAB PO SCH ×2 (06:00→16:59)
[2021-12-29] MEDS: NA CHLORIDE 0.9% 1,000 ML IV SCH ×4 (06:10→20:44)
[2021-12-29 06:41] LABS: Absolute Lymphocytes (CBC) 1.2 K/uL (0.7-4.9); Hematocrit 29.9 % (36.0-45.0); MCV 89.8 fL (80-100); MPV 7.5 fL (7.6-11.3); RBC Red Blood Cell Count 3.32 M/uL (3.86-4.86)
[2021-12-29 06:49] LABS: Magnesium 1.5 mg/dL (1.8-2.4); Phosphorus 2.3 mg/dL (2.5-4.9); Potassium 3.9 mmol/L (3.5-5.1); Thyroid Stimulating Hormone 2.31 uIU/mL (0.360-3.740)
[2021-12-29] MEDS ORDERED: BACLOFEN 10 MG TAB PO SCH ×2 (09:00→21:00)
[2021-12-29] MEDS: carBAMazepine 200 MG TAB PO SCH ×3 (09:00→20:47)
[2021-12-29] MEDS: AMLODIPINE 10 MG TAB PO SCH (09:00)
[2021-12-29] MEDS: SILDENAFIL CITRATE 20 MG TABLET PO SCH ×2 (09:00→20:47)
[2021-12-29] MEDS: lisinopriL 20 MG TAB PO SCH ×2 (10:32→20:51)
[2021-12-29] MEDS: ASCORBIC ACID 500 MG TABLET PO SCH (10:32)
[2021-12-29] MEDS: HYDRALAZINE HCL 25 MG TABLET PO SCH ×3 (10:32→20:52)
[2021-12-29] MEDS: SENOSIDES 8.6 MG TAB PO SCH ×2 (10:33→20:47)
[2021-12-29] MEDS: VITAMIN D 1000 UNIT TAB PO SCH (10:33)
[2021-12-29] MEDS: SPIRONOLACTONE 25 MG TABLET PO SCH (10:33)
[2021-12-29] MEDS: ENOXAPARIN 40 MG/0.4 ML SQ SCH (10:34)
[2021-12-29] MEDS: ASPIRIN EC 81 MG TAB PO SCH (10:34)
[2021-12-29] MEDS: NIFEDIPINE XL 60 MG TABLET PO SCH ×2 (10:35→20:51)
[2021-12-29] MEDS: LACTULOSE 20 GM/30 ML UCUP PO SCH (10:36)
[2021-12-29] MEDS: cloNIDine HCL 0.1 MG TAB PO SCH ×2 (10:45→20:51)
--- NOTE | 2021-12-29 12:37 | P.PN ---
Subjective Date of Service: 12/29/21 Chief Complaint: Nausea, vomiting and abdominal pain Patient denies any complaint. She denies any nausea today. No vomiting, no BM yet. She wants to eat solid food. Sodium level trended up. Physical Examination - Vital Signs Temperature: 97.8 F Blood Pressure: 155/65 Pulse: 71 Respirations: 23 Pulse Ox (%): 94 - Physical Exam General: Alert, In no apparent distress, Oriented x3 HEENT: Mucous membr. moist/pink Neck: JVD not distended Respiratory: Clear to auscultation bilaterally, Normal air movement Cardiovascular: No edema, Regular rate/rhythm, Normal S1 S2 Gastrointestinal: Soft and benign, Non-distended, No tenderness Musculoskeletal: No swelling Integumentary: No rashes, No cyanosis Neurological: Normal speech, Normal strength at 5/5 x4 extr - Studies Laboratory Data (last 24 hrs) 12/28/21 14:25: Sodium 119 L*, Potassium 3.9, BUN 10, Creatinine 0.64, Glucose 112 H, Phosphorus 2.5, Magnesium 1.8, Total Bilirubin 0.3, AST 22, ALT 41, Alkaline Phosphatase 83, Lipase 173 12/28/21 14:25: WBC 7.5, Hgb 13.4, Hct 38.9, Plt Count 235 Assessment And Plan - Current Problems (Diagnosis) (1) Hyponatremia Current Visit: Yes Status: Acute (2) Pneumonia Current Visit: Yes Status: Acute (3) Pulmonary fibrosis Current Visit: Yes Status: Acute (4) Trigeminal neuralgia Current Visit: Yes Status: Acute (5) Functional constipation Current Visit: Yes Status: Acute (6) Abdominal pain Current Visit: Yes Status: Acute (7) UTI (urinary tract infection) Current Visit: Yes Status: Acute - Plan Patient with hyponatremia with associated hypochloremia. Differential diagnosis include SIADH versus dehydration from nausea and vomiting. Possible causes of SIADH include carbamazepine use, pulmonary fibrosis. Serum osmolality is elevated indicating dehydration as the most likely cause of her hyponatremia. Continue IV normal saline and monitor BMP every 6 hours. TSH is slightly elevated indicating subclinically hypothyroid. No history of hypothyroidism. Nephrology consulted Continue IV Levaquin for pneumonia and UTI. Follow urine culture Stool softeners and laxatives for constipation. Magnesium citrate today. Continue antihypertensives. Chlorthalidone on hold. Carbamazepine level is within normal range. Bronchodilators for pulmonary fibrosis Oxygen saturation is stable on home oxygen-2 L by nasal cannula which is her baseline. Advance diet.
[2021-12-29] MEDS ORDERED: ALBUTEROL 2.5 MG/3 ML NEB SOL NEB PRN (15:00)
[2021-12-29] MEDS ORDERED: Magnesium Sulfate 2gm IVPB 2 G/50 ML BAG IV ONE (15:00)
[2021-12-29 15:03] LABS: Potassium 3.6 mmol/L (3.5-5.1)
[2021-12-29 15:04] LABS: Thyroid Stimulating Hormone 1.61 uIU/mL (0.360-3.740); Uric Acid 1.2 mg/dL (2.6-6.0)
[2021-12-29 17:09] LABS: Specific Gravity 1.015 (1.005-1.030); Urine Bilirubin Negative (Negative); Urine Blood Negative (Negative); Urine Clarity Clear (Clear); Urine Color Yellow (Yellow); Urine Glucose Trace (Negative); Urine Protein Negative (Negative); Urine Urobilinogen 0.2 mg/dL (0.2-1.0); Urine pH 5.5 (5.0-7.0)
[2021-12-29] MEDS ORDERED: IPRATROPIUM BROM 0.5MG/2.5ML NEB PRN (17:56)
--- NOTE | 2021-12-29 19:01 | CON ---
Date of Consultation: 12/29/2021 Reason For Consultation: Hyponatremia. History Of Present Illness: This is a pleasant 66-year-old female with significant past medical hist ory of hypertension, pulmonary hypertension, interstitial lung disease, pulmonary fibrosis, trigemina l neuropathy, migraine, brain aneurysm, the patient is known to have chronic hyponatremia according t o her secondary to nortriptyline. The patient was in her regular state of health. Apparently, her b lood pressure was not controlled. For that reason, visited with her car spotter. The patient was p laced on chlorthalidone 3 weeks ago 25 mg daily, since then started having some nausea and vomiting s ymptoms get worse. For that reason, reported to the hospital. Upon arrival to the hospital, the pat ient found to have hyponatremia with sodium down to 119. For that reason, the patient was admitted. The patient was started on IV hydration. At 2 o'clock, it was 119, after 16 hours become 122. The patient denied taking nonsteroidal. No IV contrast. Past Medical History: Includes; 1.Chronic hyponatremia. 2.Pulmonary hypertension. 3.Pulmonary fibrosis. 4.Trigeminal neuropathy. DICTATION ENDS HERE RAND Voice ID: [id number] Report ID: [id number]
[2021-12-29 19:05] LABS: Potassium 3.1 mmol/L (3.5-5.1)
[2021-12-29] MEDS ORDERED: POTASSIUM CL SA 10 MEQ TAB PO ONE (20:00)
[2021-12-29] MEDS: NORTRIPTYLINE HCL 25 MG CAP PO SCH (20:46)
[2021-12-29] MEDS: ROSUVASTATIN 10 MG TAB PO SCH (20:46)
[2021-12-30 01:32] LABS: Potassium 3.8 mmol/L (3.5-5.1)
[2021-12-30] MEDS ORDERED: POTASSIUM 25 MEQ EFFERV TAB PO ONE (02:11)
[2021-12-30] MEDS: NA CHLORIDE 0.9% 1,000 ML IV SCH (02:48)
[2021-12-30] MEDS: carvediloL 12.5 MG TAB PO SCH (05:52)
[2021-12-30 08:59] LABS: Magnesium 1.8 mg/dL (1.8-2.4); Phosphorus 2.1 mg/dL (2.5-4.9)
[2021-12-30] MEDS ORDERED: levoFLOXacin 750 MG TAB PO SCH (09:00)
[2021-12-30] MEDS: ENOXAPARIN 40 MG/0.4 ML SQ SCH ×2 (09:00→09:29)
[2021-12-30] MEDS: SILDENAFIL CITRATE 20 MG TABLET PO SCH (09:00)
[2021-12-30] MEDS: SENOSIDES 8.6 MG TAB PO SCH (09:00)
[2021-12-30 09:02] VITALS: O2SAT 95
[2021-12-30 09:05] LABS: Potassium 4.2 mmol/L (3.5-5.1)
[2021-12-30] MEDS: AMLODIPINE 10 MG TAB PO SCH (09:26)
[2021-12-30] MEDS: HYDRALAZINE HCL 25 MG TABLET PO SCH (09:26)
[2021-12-30] MEDS: ASCORBIC ACID 500 MG TABLET PO SCH (09:26)
[2021-12-30] MEDS: carBAMazepine 200 MG TAB PO SCH (09:27)
[2021-12-30] MEDS: cloNIDine HCL 0.1 MG TAB PO SCH (09:27)
[2021-12-30] MEDS: VITAMIN D 1000 UNIT TAB PO SCH (09:28)
[2021-12-30] MEDS: NIFEDIPINE XL 60 MG TABLET PO SCH (09:28)
[2021-12-30] MEDS: lisinopriL 20 MG TAB PO SCH (09:29)
[2021-12-30] MEDS: ASPIRIN EC 81 MG TAB PO SCH (09:29)
[2021-12-30] MEDS: SPIRONOLACTONE 25 MG TABLET PO SCH (09:30)
[2021-12-30 09:33] VITALS: BP 136/55
[2021-12-30 10:40] VITALS: TEMP 97.8
--- NOTE | 2021-12-30 13:53 | P.DS ---
Admission Date: 12/28/21 Discharge Date: 12/30/21 Disposition: ROUTINE DISCHARGE Discharge Condition: FAIR Reason for Admission: Nausea, vomiting and abdominal pain - Problems (1) Hyponatremia Status: Acute (2) Pneumonia Status: Acute (3) Pulmonary fibrosis Status: Acute (4) Trigeminal neuralgia Status: Acute (5) Functional constipation Status: Acute (6) Abdominal pain Status: Acute (7) UTI (urinary tract infection) Status: Acute Brief History of Present Illness: 66-year-old woman with a history of pulmonary fibrosis, pulmonary hypertension, trigeminal neuralgia presented to the emergency department with a complaint of nausea vomiting of 6-days duration followed by abdominal pain of onset 2 days ago. Patient also reports constipation. She stated she has not been able to tolerate food or drink and apart poor oral intake. Work-up in the emergency department revealed hyponatremia with sodium level of 119. Patient states that she has chronic hyponatremia from taking carbamazepine for trigeminal neuralgia. CT chest abdomen pelvis done to evaluate abdominal pain demonstrated a streak of pneumonia in the left lung. No significant abdominal pathology to explain her abdominal pain except constipation. She had no leukocytosis and denies any fever, no sepsis. Patient denied any diarrhea but endorsed constipation. Patient admitted for further management. Hospital Course: Patient with hyponatremia with associated hypochloremia. Differential diagnosis include SIADH versus dehydration from nausea and vomiting. Possible causes of SIADH include carbamazepine use, pulmonary fibrosis. Serum osmolality was elevated indicating dehydration as the most likely cause of her hyponatremia. Patient treated with IV normal saline and BP monitored closely. Nephrology was also consulted to assist with management TSH was slightly elevated indicating subclinically hypothyroid. No history of hypothyroidism. Her sodium level improved with treatment. According to the patient she has chronic hyponatremia and his sodium level ranges from 125-135. Last sodium level recorded was 127. She had UTI and pneumonia which was treated with IV Levaquin. Urine culture grew gram-negative rods. Organism identification and antibiotic sensitivities pending She was treated for constipation with stool softeners and laxatives and successfully had a bowel movement. Her oxygen saturation was stable. She uses 2 L oxygen by nasal cannula on as- needed basis at home. She tolerated solid diet. Patient requested to go home today. Her sodium level has improved to her baseline. She is discharged per her request and prescribed Levaquin to continue treatment for the UTI and pneumonia. Vital Signs/Physical Exam: Temp Pulse Resp BP Pulse Ox 97.8 F 75 18 136/55 L 95 12/30/21 08:00 12/30/21 09:30 12/30/21 08:00 12/30/21 09:30 12/30/21 08:00 General: Alert, In no apparent distress, Oriented x3 HEENT: Mucous membr. moist/pink Neck: JVD not distended Respiratory: Clear to auscultation bilaterally, Normal air movement Cardiovascular: No edema, Regular rate/rhythm, Normal S1 S2 Gastrointestinal: Normal bowel sounds, Soft and benign, Non-distended, No tenderness Musculoskeletal: No swelling, No tenderness Integumentary: No rashes Neurological: Normal strength at 5/5 x4 extr Laboratory Data at Discharge: WBC 5.9 K/uL (4.3-10.9) D 12/29/21 06:11 Hgb 10.7 g/dL (12.0-15.0) L D 12/29/21 06:11 Hct 29.9 % (36.0-45.0) L D 12/29/21 06:11 Plt Count 174 K/uL (152-406) D 12/29/21 06:11 Sodium Cancelled 12/30/21 18:37 Potassium Cancelled 12/30/21 18:37 BUN Cancelled 12/30/21 18:37 Creatinine Cancelled 12/30/21 18:37 Glucose Cancelled 12/30/21 18:37 Uric Acid 1.2 mg/dL (2.6-6.0) L 12/29/21 14:00 Phosphorus 2.1 mg/dL (2.5-4.9) L 12/30/21 07:16 Magnesium 1.8 mg/dL (1.8-2.4) 12/30/21 07:16 Total Bilirubin 0.3 mg/dL (0.2-1.0) 12/28/21 14:25 AST 22 U/L (15-37) 12/28/21 14:25 ALT 41 U/L (12-78) 12/28/21 14:25 Alkaline Phosphatase 83 U/L (45-117) 12/28/21 14:25 Triglycerides 36 mg/dL (<150) 12/29/21 06:11 Cholesterol 218 mg/dL (<200) H 12/29/21 06:11 HDL Cholesterol 82 mg/dL (40-60) H 12/29/21 06:11 Cholesterol/HDL Ratio 2.66 12/29/21 06:11 Lipase 173 U/L (73-393) 12/28/21 14:25 Home Medications: Ascorbic Acid [Vitamin C*] 1,000 mg PO DAILY 12/28/21 Aspirin Chewable [Aspirin Chewable*] 81 mg PO DAILY 12/28/21 Baclofen [Lioresal*] 10 mg PO BEDTIME 12/28/21 Carvedilol [Coreg] 12.5 mg PO BID 12/28/21 Chlorthalidone [Hygroton 25mg Tab*] 25 mg PO DAILY 12/28/21 Cholecalciferol (Vitamin D3) [Vitamin D 1000 Iu Tab*] 1 tab PO DAILY 12/28/21 Clonidine HCl [Clonidine HCl ER] 1 tab PO BID 12/28/21 Hydralazine [Apresoline*] 50 mg PO TID 12/28/21 Lisinopril [Zestril] 20 mg PO BID 12/28/21 Melatonin/Pyridoxine [Melatonin 5 mg Tablet] 1 tab PO BEDTIME 12/28/21 NIFEdipine [Nifedipine ER] 1 tab PO BID 12/28/21 Nortriptyline HCl 1 cap PO BEDTIME 12/28/21 Ondansetron [Zofran (Odt)*] 4 mg PO BID 12/28/21 Pantoprazole [Protonix Tab*] 1 tab PO DAILY 12/28/21 Rosuvastatin [Crestor*] 40 mg PO DAILY 12/28/21 SUMAtriptan succinate [Sumatriptan Succinate] 100 mg PO DAILY 12/28/21 Sildenafil Citrate [Revatio*] 20 mg PO BID PRN 12/28/21 Spironolactone [Aldactone*] 1 tab PO DAILY 12/28/21 carBAMazepine [Carbamazepine] 2 tab PO TID 12/29/21 Polyethyl Gly 3350 [Glycolax*] 17 gm PO DAILY PRN #30 udbot 12/30/21 levoFLOXacin [Levaquin*] 750 mg PO DAILY #7 tab 12/30/21 New Medications: Polyethyl Gly 3350 [Glycolax*] 17 gm PO DAILY PRN #30 udbot PRN Reason: Constipation levoFLOXacin [Levaquin*] 750 mg PO DAILY #7 tab Diet: AHA Activity: Ad rebecca Followup: NONE,NONE [Primary Care Provider] - (Dr. Ramirez within 1 week.) Time spent managing pt's care (in minutes): 36
[2021-12-31 12:52] LABS: Urine Blood Negative (Negative); Urine Glucose Negative (Negative); Urine Protein 2+ (Negative); Urine Specific Gravity >=1.030 (1.005-1.030)
--- OUTSIDE RECORDS SUMMARY | 2022-01-05 02:42 | XMS REPORT | Continuity of Care Document ---
:1955 Author Organization [facility] t Address [address] [place] [address] Care Team Providers Name Role Phone Ramirez, Faith Blount Primary Care Physician Sang Ramirez Attending Clinician Unavailable Kiko CLIFFORD M Attending Clinician LAURITA Attending Clinician Unavailable Sang Constantino APN Attending Clinician Mike MCKEE Attending Clinician Laurita MCKEE Attending Clinician Doctor Unassigned, Name Attending Clinician Unavailable Shey MCKEE Attending Clinician YONY Attending Clinician Unavailable RHONA Attending Clinician Unavailable SHEY Attending Clinician Unavailable SHAQ Attending Clinician Unavailable NIKITA Attending Clinician Unavailable MARK Attending Clinician Unavailable LAURITA Admitting Clinician Unavailable Laurita MCKEE Admitting Clinician Payers Payer Name Policy Type Policy Number Effective Date Expiration Date S ource Problems Condition Condition Condition Status Onset Resolution Last Treating Co mments Source Name Details Category Date Date Treatment Clinician Date Hyponatrem Hyponatrem Disease Active U tristeners [place] 01-01 ity of 00:00: [address] Branch 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 3-22 ity of stenosis stenosis 00:00: [address] Allergies, Adverse Reactions, Alerts Allergy Allergy Status Severity Reaction(s) Onset Inactive Treating Comm ents Source Name Type Date Date Clinician NO KNOWN Drug Active Univers ALLERGIE Class ity of S [facility] Social History Social Habit Start Date Stop Date Quantity Comments Source Exposure to 2021-12-22 2022-01-01 Not sure [facility] SARS-CoV-2 00:00:00 02:28:00 [facility] (event) [place] Alcohol intake 2022-01-01 2022-01-01 Current [facility] 00:00:00 00:00:00 non-drinker of [facility] alcohol (finding) [place] Education 2022-01-01 2022-01-01 21 [facility] 00:00:00 00:00:00 [facility] Tobacco use and 2020-07-28 2020-07-28 Smokeless tobacco Un iversity of exposure 00:00:00 00:00:00 non-user [facility] Sex Assigned [birth year] [place] [facility] y of 00:00:00 00:00:00 [facility] Smoking Status Start Date Stop Date Source Never smoked tobacco [facility] Medications Ordered Filled Start Stop Current Ordering Indication Dosage Frequency Signature Comments Components Source Medication Medication Date Date Medication? Clinician (SIG) Name Name demeclocycl Yes 150mg 150 mg, Un jose guadalupe ine 7-20 Oral, BID, ity of (DECLOMYCIN 01:00: First dose [place] ) tablet 00 sun [facility] 150 mg 01/03/22 at [place] 1999, Until Discontinu ed, DERRELL
Re ason for Anti-Infec tive: Empiric Non-Surgic al Prophylaxi s
Durat ion of therapy: 7 days
Sp ecific indication : For treatment of hyponatrem uia polyethylen Yes [id number] 17g Take 1 Univers e glycol 7-20 Packet by ity of 3350 17 00:00: mouth in [place] gram powder 00 the Medical morning. Branch polyethylen Yes [id number] 17g Take 1 Univers e glycol 7-20 Packet by ity of 3350 17 00:00: mouth in [place] gram powder 00 the Medical morning. Branch sennosides- 0 202- Yes [id number] 1{tbl} Take 1 Univers docusate 7-20 08-20 tablet by ity o f sodium 00:00: 04:59 mouth in [place] 8.6-50 mg 00 :00 the Medical per tablet morning Branch for 30 days. sennosides- 0 2022- Yes [id number] 1{tbl} Take 1 Univers docusate 7-20 08-20 tablet by ity o f sodium 00:00: 04:59 mouth in [place] 8.6-50 mg 00 :00 the Medical per tablet morning Branch for 30 days. cholecalcif Yes 1000U Take 1,000 Univers latisha, 7-19 Units by ity of vitamin D3, 17:23: mouth in [place] [address] the [facility] D3) 25 mcg morning. Branc h (1,000 unit) tablet Melatonin 5 Yes 5mg Take 5 mg U nivers mg tablet 7-19 by mouth ity of 17:23: in the [place] [address] morning. @ Medical NIGHT Branch sildenafil Yes 20mg Take 20 mg U nivers 20 mg 7-19 by mouth ity of tablet 17:23: in the [place] [address] morning Medical and 20 mg Branch in the evening. sumatriptan Yes 100mg Take 100 U nivers 100 mg 7-19 mg by ity of tablet 17:23: mouth as [place] [address] needed for Medical Migraine. Branch carBAMazepi Yes 400mg Take 400 U nivers ne 200 mg 7-19 mg by ity of tablet 17:23: mouth in [place] [address] the Medical morning Branch and 400 mg at noon and 400 mg in the evening. Indication s: 200mg QAM 200mg QNoon 100mg QPM pantoprazol 0 Yes 40mg Take 40 mg Univers e 40 mg EC 7-19 by mouth ity o f tablet 17:23: daily. [place] [address] Medical Branch aspirin 81 0 Yes 81mg Take 81 mg U nivers mg chewable 7-19 by mouth ity of tablet 17:23: daily. [address] Branch rosuvastati 0 Yes 40mg Take 40 mg Univers n 40 mg 7-19 by mouth ity of tablet 17:23: at [place] [address] bedtime. Medical Branch baclofen 10 Yes 10mg Take 10 mg Univers mg tablet 7-19 by mouth ity of 17:23: in the [place] [address] morning. Medical Branch nortriptyli Yes 25mg Take 25 mg Univers ne 25 mg 7-19 by mouth ity of capsule 17:23: daily. [place] [address] Medical Branch cholecalcif 0 Yes 1000U Take 1,000 Univers latisha, 7-19 Units by ity of vitamin D3, 17:23: mouth in [place] (VITAMIN 39 the Medical D3) 25 mcg morning. Branc h (1,000 unit) tablet Melatonin 5 Yes 5mg Take 5 mg U nivers mg tablet 7-19 by mouth ity of 17:23: in the [place] [address] morning. @ Medical NIGHT Branch sildenafil 0 Yes 20mg Take 20 mg U nivers 20 mg 7-19 by mouth ity of tablet 17:23: in the [place] [address] morning Medical and 20 mg Branch in the evening. sumatriptan Yes 100mg Take 100 U nivers 100 mg 7-19 mg by ity of tablet 17:23: mouth as [place] [address] needed for Medical Migraine. Branch carBAMazepi Yes 400mg Take 400 U nivers ne 200 mg 7-19 mg by ity of tablet 17:23: mouth in [place] [address] the Medical morning Branch and 400 mg at noon and 400 mg in the evening. Indication s: 200mg QAM 200mg QNoon 100mg QPM pantoprazol Yes 40mg Take 40 mg Univers e 40 mg EC 7-19 by mouth ity o f tablet 17:23: daily. [place] [address] Medical Branch aspirin 81 0 Yes 81mg Take 81 mg U nivers mg chewable 7-19 by mouth ity of tablet 17:23: daily. [place] [address] Medical Branch rosuvastati 0 Yes 40mg Take 40 mg Univers n 40 mg 7-19 by mouth ity of tablet 17:23: at [place] [address] bedtime. Medical Branch baclofen 10 Yes 10mg Take 10 mg Univers mg tablet 7-19 by mouth ity of 17:23: in the [place] [address] morning. Medical Branch nortriptyli 0 Yes 25mg Take 25 mg Univers ne 25 mg 7-19 by mouth ity of capsule 17:23: daily. [place] 39 [facility] Branch chlorthalid 2021- No 25mg Take 25 mg Univers one 25 mg 01-03 by mouth ity o f tablet 16:01: 00:00 in the [place] 21 :00 morning. Medical Branch tolvaptan 2021- No 7.5mg 7.5 mg, Uni vers (SAMSCA) 01-03 Oral, ity of tablet 7.5 14:00: 13:20 ONCE, 1 [place] as mg 00 :00 dose, On [facility] Branch 01/03/22 at 0900, Routine
amphibian crewmember approving Restricted medication : TITA XIONG proMETHazin 0 Yes [id number] 25mg Take 1 Univers e 25 mg 7-19 tablet by ity of tablet 00:00: mouth [place] 00 every 4 Medical (four) Branch hours as needed for Nausea and Vomiting (N/V). sodium 0 Yes [id number] 1g Take 1 Unive rs chloride 1 7-19 tablet by ity of gram tablet 00:00: mouth in [place] 00 the Medical morning Branch and 1 tablet in the evening. Take with meals. proMETHazin 0 Yes [id number] 25mg Take 1 Univers e 25 mg 7-19 tablet by ity of tablet 00:00: mouth [place] 00 every 4 Medical (four) Branch hours as needed for Nausea and Vomiting (N/V). sodium 2021-0 Yes [id number] 1g Take 1 Unive rs chloride 1 7-19 tablet by ity of gram tablet 00:00: [place] 00 the Medical morning Branch and 1 tablet in the evening. Take with meals. urea 2021- Yes [id number] 1{packe Take 1 Uni vers (URE-NA) 15 01-03 08-19 t} Packet by it y of gram 00:00: 04:59 mouth in [place] 00 :00 the [facility] Branch for 30 days. urea 0 2021- Yes [id number] 1{packe Take 1 Uni vers (URE-NA) 15 7- 08-19 t} Packet by it y of gram 00:00: 04:59 mouth in [place] 00 :[address] [facility] for 30 days. demeclocycl 2021- Yes [id number] 150mg Take 1 Univers ine 150 mg 01-03 tablet by ity of tablet 00:00: 04:59 mouth in [place] 00 :00 the [facility] Branch and 1 tablet in the evening. Do all this for 10 days. demeclocycl 2021- Yes [id number] 150mg Take 1 Univers ine 150 mg 01-03 tablet by ity of tablet 00:00: 04:59 mouth in [place] 00 :[address] [facility] and 1 tablet in the evening. Do all this for 10 days. D5W IV No 1000mL at 125 Univer s infusion 01-02 mL/hr, IV ity o f 1,000 mL 22:15: 22:11 Infusion, [place] as 00 :00 ONCE, 1 Medical dose, On [facility] 01/02/22 at 1715, Routine levoFLOXaci 2021- No 750mg 750 mg, U nivers n 01-02 Oral, ity of (LEVAQUIN) 22:00: 22:11 ONCE, 1 [place] as tablet 750 00 :00 dose, On Medic al mg [facility] 01/02/22 at 1700, DERRELL
Re ason for Anti-Infec tive: Documented Infection< br>Documen alireza Infection Site: Respirator y
Durat ion of Therapy: 7 days tolvaptan No 7.5mg 7.5 mg, Uni vers (SAMSCA) 01-02 Oral, ity of tablet 7.5 06:45: 06:20 ONCE, 1 [place] as mg 00 :00 dose, On Medical [facility] 01/02/22 at 0145, Routine
amphibian crewmember approving Restricted medication : MARIANNE RAMSAY rosuvastati Yes 40mg 40 mg, Univ ers n (CRESTOR) 01-02 Oral, QHS, it y of tablet 40 02:00: First dose [place] mg 00 on [facility] 01/01/22 at Branch 2100, Until Discontinu ed, Routine KCL 2021- No 20meq 20 mEq, Univers (KLOR-CON 01-01 Oral, ity of M20) tablet 23:00: 22:05 ONCE, 1 [place] 20 mEq 00 :00 dose, On Medical [place] Branch 01/01/22 at 1800, Routine polyethylen Yes 17g 17 g, Unive rs e glycol 01-01 Oral, ity of 3350 powder 21:15: DAILY, [place] 17 g 00 First dose Medical on [place] Branch 01/01/22 at 1615, Until Discontinu ed, Routine sennosides- Yes 1{tbl} 1 tablet, Univers docusate 01-01 Oral, ity of sodium 21:15: DAILY, [place] (SENOKOT-S) 00 First dose Me dical 8.6-50 mg on [place] Branch per tablet 01/01/22 at 1 tablet 1615, Until Discontinu ed, Routine magnesium 2021- No 2g 2 g, IV Univ ers sulfate in 01-01 Piggyback, it y of water 2 19:45: 21:34 Administer [place] as gram/50 mL 00 :00 over 60 Medica l (4 %) Minutes, Branch infusion 2 ONCE, 1 g dose, On [place] 01/01/22 at 1445, Routine NaCl 0.9% 2021- No 1000mL at 50 Univ ers (NS) IV 01-01 mL/hr, IV ity of infusion 15:00: 21:00 Infusion, [place] as 1,000 mL 00 :59 CONTINUOUS Medic al , Starting Branch on [place] 01/01/22 at 1000, Until [facility] 01/02/22 at 1600, Routine calcium 2021- No 1g 1 g, IV Univer s gluconate 1 01-01 Infusion, it y of g in NaCl 15:00: 02:21 Q8H, 3 [place] 50 mL 00 :00 doses, Medical (ISO-OSM) First dose Bran ch RTU IV on Sun infusion 1 01/01/22 at g 1000, Last dose on [place] 01/01/22 at 2200, Routine enoxaparin Yes 40mg 40 mg, Unive rs (LOVENOX) 01-01 Subcutaneo ity of injection 14:00: [place], [place]ILY, [place] 40 mg 00 First dose Medical on [facility] 01/01/22 at 0900, Until Discontinu ed, Routine nortriptyli 0 Yes 25mg 25 mg, Univ ers ne 01-01 Oral, ity of (PAMELOR) 14:00: DAILY, [place] capsule 25 00 First dose Med ical mg on [facility] 01/01/22 at 0900, Until Discontinu ed, Routine cholecalcif 0 Yes 1000U 1,000 Univ ers latisha 01-01 Units, ity of (vitamin 14:00: Oral, [place] D3) tablet 00 DAILY, Medical 1,000 Units First dose Br anch on [place] 01/01/22 at 0900, Until Discontinu ed, Routine baclofen 0 Yes 10mg 10 mg, Univers (LIORESAL) 01-01 Oral, ity of tablet 10 14:00: DAILY, [place] mg 00 First dose Medical on [facility] 01/01/22 at 0900, Until Discontinu ed, Routine aspirin 0 Yes 81mg 81 mg, Univers chewable 01-01 Oral, ity of tablet 81 14:00: DAILY, [place] mg 00 First dose Medical on [facility] 01/01/22 at 0900, Until Discontinu ed, Routine carvediloL 0 Yes 12.5mg 12.5 mg, U nivers (COREG) 01-01 Oral, BID ity of tablet 12.5 13:00: MEALS, [place] mg 00 First dose Medical on [facility] 01/01/22 at 0800, Until Discontinu ed, Routine carBAMazepi 0 Yes 400mg 400 mg, Un jose guadalupe ne 01-01 Oral, TID, ity of (TEGRETOL) 13:00: First dose [place] tablet 400 00 on [place] Medical mg 01/01/22 at Branch 0800, Until Discontinu ed, Routine NaCl 0.9% 0 2021- No 1000mL at 125 Uni vers (NS) IV 01-01 07-17 mL/hr, IV ity of infusion 12:15: 14:54 Infusion, [place] as 1,000 mL 00 :26 CONTINUOUS Medic al , Starting Branch on 01/01/22 at 0715, Until 01/01/22 at 0954, Routine ondansetron 0 Yes 4mg 4 mg, Slow Univers (ZOFRAN 01-01 IV Push, ity of (PF)) 08:44: Q6HPRN, [place] injection 4 13 Starting Medi oliver mg on [place] Branch 01/01/22 at 0344, Until Discontinu ed, Routine, Nausea and Vomiting (N/V) acetaminoph Yes 650mg 650 mg, Un jose guadalupe en 01-01 Oral, ity of (TYLENOL) 08:44: Q6HPRN, [place] tablet 650 06 Starting Medic al mg on [facility] 01/01/22 at 0344, Until Discontinu ed, Routine, Pain (scale 1-3) melatonin Yes 6mg 6 mg, Univers (MELATIN) 01-01 Oral, ity of tablet 6 mg 08:32: QHSPRN, [place] as 38 Starting Medical on [facility] 01/01/22 at 0332, Until Discontinu ed, Insomnia NaCl 0.9% 2021- No 1000mL at 250 Uni vers (NS) bolus 01-01 mL/hr, ity of infusion 07:45: 06:50 1,000 mL, [place] as 1,000 mL 00 :00 IV Medical Infusion, Branch ONCE, 1 dose, On [place] 01/01/22 at 0245, STAT iopamidol 2021- No [id number] 55mL 55 mL, Univers (ISOVUE 01-01 Intravenou ity o f 300-500 mL) 06:30: 05:30 s, ONCE, 1 [place] injection 00 :00 dose, On Medica l 55 mL [facility] 01/01/22 at 0130, Routine proMETHazin 2021- No 12.5mg 12.5 mg, Univers e 01-01 IV ity of (PHENERGAN) 06:00: 05:02 Piggyback, [place] 12.5 mg in 00 :00 ONCE NOW, Medi oliver NaCl 0.9% 1 dose, On Bran ch (NS) 50 mL [place] IV 01/01/22 at piggyback 0100, DERRELL ondansetron 0 2021- No 4mg 4 mg, Slow Univers (ZOFRAN 01-01 IV Push, ity of (PF)) 03:45: 04:10 ONCE, 1 [place] injection 4 00 :00 dose, On Medi oliver mg [facility] Branch 12/31/21 at 2245, DERRELL amLODIPine 2021-0 2- No 10mg Take 10 mg Univers 10 mg 01-01 by mouth ity of tablet 03:44: 00:00 daily. [place] 29 :00 Medical Branch spironolact 2021-0 Yes 25mg Take 1 Univ ers one 25 mg 7-01 tablet by ity o f tablet 00:00: mouth [place] 00 daily. Medical Branch spironolact 2021-0 Yes 25mg Take 1 Univ ers one 25 mg 7-01 tablet by ity o f tablet 00:00: mouth [place] 00 daily. Medical Branch spironolact 2021-0 Yes 25mg Take 1 Univ ers one 25 mg 7-01 tablet by ity o f tablet 00:00: mouth [place] 00 daily. Medical Branch spironolact 2021-0 Yes 25mg Take 1 Univ ers one 25 mg 7-01 tablet by ity o f tablet 00:00: mouth [place] 00 daily. Medical Branch spironolact 2021-0 Yes 25mg Take 1 Univ ers one 25 mg 3-29 tablet by ity o f tablet 00:00: mouth [place] 00 daily. Medical Branch spironolact 2021-0 Yes 25mg Take 1 Univ ers one 25 mg 3-29 tablet by ity o f tablet 00:00: mouth [place] 00 daily. Medical Branch spironolact 2-0 2022- No 25mg Take 1 Uni vers one 25 mg 3-29 07-01 tablet by ity of tablet 00:00: 00:00 mouth [place] 00 :00 daily. Medical Branch cloNIDine 2021-0 Yes .1mg Take 1 Univer s 0.1 mg 3-09 tablet by ity of tablet 00:00: mouth 2 00 (two) Medical times Branch daily. cloNIDine 2022-0 Yes .1mg Take 1 Univer s 0.1 mg 3-09 tablet by ity of tablet 00:00: mouth 2 [place] 00 (two) Medical times Branch daily. cloNIDine 2022-0 Yes .1mg Take 1 Univer s 0.1 mg 3-09 tablet by ity of tablet 00:00: mouth 2 [place] 00 (two) Medical times Branch daily. cloNIDine 2022-0 Yes .1mg Take 1 Univer s 0.1 mg 3-09 tablet by ity of tablet 00:00: mouth 2 (two) Medical times Branch daily. cloNIDine 2021-0 Yes .1mg Take 1 Univer s 0.1 mg 3-09 tablet by ity of tablet 00:00: mouth 2 (two) Medical times Branch daily. cloNIDine 2022-0 Yes .1mg Take 1 Univer s 0.1 mg 3-09 tablet by ity of tablet 00:00: mouth 2 00 (two) Medical times Branch daily. sumatriptan 2021-0 Yes 100mg Take 100 U nivers 100 mg 2-09 mg by ity of tablet 15:19: mouth as [place] [address] needed for Medical Migraine. Branch carBAMazepi 2021-0 Yes 300mg Take 300 U nivers ne 200 mg 2-09 mg by ity of tablet 15:19: mouth 3 (three) Medical times Branch daily. Indication s: 200mg QAM 200mg QNoon 100mg QPM pantoprazol 2021-0 Yes 40mg Take 40 mg Univers e 40 mg EC 2-09 by mouth ity o f tablet 15:19: daily. [place] [address] Medical Branch aspirin 81 2021-0 Yes 81mg Take 81 mg U nivers mg chewable 2-09 by mouth ity of tablet 15:19: daily. [place] [address] Medical Branch amLODIPine 2021-0 Yes 10mg Take 10 mg U nivers 10 mg 2-09 by mouth ity of tablet 15:19: daily. [place] [address] Medical Branch rosuvastati 2021-0 Yes 40mg Take 40 mg Univers n 40 mg 2-09 by mouth ity of tablet 15:19: at [place] [address] bedtime. Medical Branch baclofen 10 2021-0 Yes 10mg Take 10 mg Univers mg tablet 2-09 by mouth 2 ity of 15:19: (two) [place] [address] times Medical daily. Branch nortriptyli 2021-0 Yes 25mg Take 25 mg Univers ne 25 mg 2-09 by mouth ity of capsule 15:19: daily. [place] [address] Medical Branch sumatriptan 2021-0 Yes 100mg Take 100 U nivers 100 mg 2-09 mg by ity of tablet 15:19: mouth as [place] [address] needed for Medical Migraine. Branch carBAMazepi 2021-0 Yes 300mg Take 300 U nivers ne 200 mg 2-09 mg by ity of tablet 15:19: mouth 3 [place] [address] (three) Medical times Branch daily. Indication s: 200mg QAM 200mg QNoon 100mg QPM pantoprazol 2021-0 Yes 40mg Take 40 mg Univers e 40 mg EC 2-09 by mouth ity o f tablet 15:19: daily. [address] aspirin 81 2021-0 Yes 81mg Take 81 mg U nivers mg chewable 2-09 by mouth ity of tablet 15:19: daily. [address] Branch amLODIPine 2021-0 Yes 10mg Take 10 mg U nivers 10 mg 2-09 by mouth ity of tablet 15:19: daily. [address] Branch rosuvastati 2021-0 Yes 40mg Take 40 mg Univers n 40 mg 2-09 by mouth ity of tablet 15:19: at [place] [address] bedtime. Medical Branch baclofen 10 2021-0 Yes 10mg Take 10 mg Univers mg tablet 2-09 by mouth 2 ity of 15:19: (two) [address] daily. Branch nortriptyli 2021-0 Yes 25mg Take 25 mg Univers ne 25 mg 2-09 by mouth ity of capsule 15:19: daily. [address] Branch sumatriptan 2021-0 Yes 100mg Take 100 U nivers 100 mg 2-09 mg by ity of tablet 15:19: mouth as [place] [address] needed for Medical Migraine. Branch carBAMazepi 2021-0 Yes 300mg Take 300 U nivers ne 200 mg 2-09 mg by ity of tablet 15:19: mouth 3 [place] [address] (three) Medical times [place] daily. Indication s: 200mg QAM 200mg QNoon 100mg QPM pantoprazol 2021-0 Yes 40mg Take 40 mg Univers e 40 mg EC 2-09 by mouth ity o f tablet 15:19: daily. [address] aspirin 81 2021-0 Yes 81mg Take 81 mg U nivers mg chewable 2-09 by mouth ity of tablet 15:19: daily. [address] amLODIPine 2021-0 Yes 10mg Take 10 mg U nivers 10 mg 2-09 by mouth ity of tablet 15:19: daily. [address] rosuvastati 2021-0 Yes 40mg Take 40 mg Univers n 40 mg 2-09 by mouth ity of tablet 15:19: at [place] [address] bedtime. Medical Branch baclofen 10 0 Yes 10mg Take 10 mg Univers mg tablet 2-09 by mouth 2 ity of 15:19: (two) [place] [address] times Medical daily. Branch nortriptyli 0 Yes 25mg Take 25 mg Univers ne 25 mg 2-09 by mouth ity of capsule 15:19: daily. [place] [address] Medical Branch sumatriptan 0 Yes 100mg Take 100 U nivers 100 mg 2-09 mg by ity of tablet 15:19: mouth as needed for Medical Migraine. Branch carBAMazepi 0 Yes 300mg Take 300 U nivers ne 200 mg 2-09 mg by ity of tablet 15:19: mouth 3 (three) Medical times [place] daily. Indication s: 200mg QAM 200mg QNoon 100mg QPM pantoprazol 0 Yes 40mg Take 40 mg Univers e 40 mg EC 2-09 by mouth ity o f tablet 15:19: daily. [address] Branch aspirin 81 2021-0 Yes 81mg Take 81 mg U nivers mg chewable 2-09 by mouth ity of tablet 15:19: daily. [address] Branch amLODIPine 0 Yes 10mg Take 10 mg U nivers 10 mg 2-09 by mouth ity of tablet 15:19: daily. [place] [address] Medical Branch rosuvastati 0 Yes 40mg Take 40 mg Univers n 40 mg 2-09 by mouth ity of tablet 15:19: at [place] [address] bedtime. Medical Branch baclofen 10 0 Yes 10mg Take 10 mg Univers mg tablet 2-09 by mouth 2 ity of 15:19: (two) [place] [address] times Medical daily. Branch nortriptyli 2021-0 Yes 25mg Take 25 mg Univers ne 25 mg 2-09 by mouth ity of capsule 15:19: daily. [place] [address] Medical Branch carvediloL 2021-0 Yes [id number] 12.5mg Take 1 Univers 12.5 mg 2-02 tablet by ity of tablet 00:00: mouth 2 [place] (two) Medical times [place] daily with meals. carvediloL 2021-0 Yes [id number] 12.5mg Take 1 Univers 12.5 mg 2-02 tablet by ity of tablet 00:00: mouth (two) Medical times Branch daily with meals. carvediloL 2022-0 Yes [id number] 12.5mg Take 1 Univers 12.5 mg 2-02 tablet by ity of tablet 00:00: mouth (two) Medical times Branch daily with meals. carvediloL 2022-0 Yes [id number] 12.5mg Take 1 Univers 12.5 mg 2-02 tablet by ity of tablet 00:00: mouth (two) Medical times Branch daily with meals. carvediloL 2022-0 Yes [id number] 12.5mg Take 1 Univers 12.5 mg 2-02 tablet by ity of tablet 00:00: mouth (two) Medical times Branch daily with meals. carvediloL 2022-0 Yes [id number] 12.5mg Take 1 Univers 12.5 mg 2-02 tablet by ity of tablet 00:00: mouth (two) Medical times Branch daily with meals. hydrALAZINE 2022-0 Yes 50mg Take 1 Univ ers 50 mg 1-19 tablet by ity of tablet 00:00: mouth (three) Medical times Branch daily. hydrALAZINE 2022-0 Yes 50mg Take 1 Univ ers 50 mg 1-19 tablet by ity of tablet 00:00: mouth (three) Medical times Branch daily. hydrALAZINE 2022-0 Yes 50mg Take 1 Univ ers 50 mg 1-19 tablet by ity of tablet 00:00: mouth (three) Medical times Branch daily. hydrALAZINE 2022-0 Yes 50mg Take 1 Univ ers 50 mg 1-19 tablet by ity of tablet 00:00: mouth (three) Medical times Branch daily. hydrALAZINE 2022-0 Yes 50mg Take 1 Univ ers 50 mg 1-19 tablet by ity of tablet 00:00: mouth (three) Medical times Branch daily. hydrALAZINE 2022-0 Yes 50mg Take 1 Univ ers 50 mg 1-19 tablet by ity of tablet 00:00: mouth (three) Medical times Branch daily. lisinopriL 2021-0 Yes 20mg Take 1 Unive rs 20 mg 7-16 tablet by ity of tablet 00:00: mouth 2 (two) Medical times Branch daily. lisinopriL 2021-0 Yes 20mg Take 1 Unive rs 20 mg 7-16 tablet by ity of tablet 00:00: mouth 2 (two) Medical times Branch daily. lisinopriL 2021-0 Yes 20mg Take 1 Unive rs 20 mg 7-16 tablet by ity of tablet 00:00: mouth 2 (two) Medical times Branch daily. lisinopriL 2021-0 Yes 20mg Take 1 Unive rs 20 mg 7-16 tablet by ity of tablet 00:00: mouth 2 (two) Medical times Branch daily. lisinopriL 2021-0 Yes 20mg Take 1 Unive rs 20 mg 7-16 tablet by ity of tablet 00:00: mouth 2 [place] (two) Medical times Branch daily. lisinopriL 2021-0 Yes 20mg Take 1 Unive rs 20 mg 7-16 tablet by ity of tablet 00:00: mouth 2 [place] (two) Medical times Branch daily. Macrobid Macrobid 2020-0 2020- No Na Ramirez 1 capsule Common 02-1712 by mouth [facility] 00:00: 00:00 - [facility] 00 :00 [facility] Losartan Losartan 2019-0 Yes Na Ramirez 1 tablet Common Potassium Potassium 2-13 Spiri t 00:00: - [facility] 00 [facility] Crestor Crestor 2019-1 Yes Na Ramirez 1 tablet Common 1-14 Spirit 00:00: - [facility] 00 [facility] Medrol Medrol 2019-0 Yes Na Ramirez as Common 1-23 directed Spirit 00:00: with food - [facility] 00 [facility] NaCl 0.9% Yes [id number] 250mL Uni vers (NS) IV 6-13 ity of infusion 19:15: [place] 250 mL 00 Medical Branch NaCl 0.9% Yes [id number] 250mL Uni vers (NS) IV 6-13 ity of infusion 19:15: [place] 250 mL 00 Medical Branch NaCl 0.9% Yes [id number] 250mL Uni vers (NS) IV 6-13 ity of infusion 19:15: [place] 250 mL 00 Medical Branch NaCl 0.9% Yes [id number] 250mL Uni vers (NS) IV 6-13 ity of infusion 19:15: [place] 250 mL 00 Medical Branch NaCl 0.9% 2021- No [id number] 250mL Un jose guadalupe (NS) IV 11-2819 ity of infusion 19:15: 21:01 [place] 250 mL 00 :19 Medical Branch DOBUTamine Yes [id number] 433ug/m Univers (DOBUTREX) 6-13 in ity of 500 mg in 18:04: [place] 250mL(Fixed 46 Medical Dose) D5W Branch infusion DOBUTamine Yes [id number] 433ug/m Univers (DOBUTREX) 6-13 in ity of 500 mg in 18:04: [place] 250mL(Fixed 46 Medical Dose) D5W Branch infusion DOBUTamine Yes [id number] 433ug/m Univers (DOBUTREX) 6-13 in ity of 500 mg in 18:04: [place] 250mL(Fixed 46 Medical Dose) D5W Branch infusion DOBUTamine Yes [id number] 433ug/m Univers (DOBUTREX) 6-13 in ity of 500 mg in 18:04: [place] 250mL(Fixed 46 Medical Dose) D5W Branch infusion DOBUTamine 2021- No [id number] 433ug/m Univers (DOBUTREX) 613 19 in ity of 500 mg in 18:04: 21:01 [place] 250mL(Fixed 46 :19 Medical Dose) D5W Branch infusion Nortriptyli Nortriptyli Yes Na Ramirez 1 capsule Common ne HCl ne HCl [facility] Amlodipine Amlodipine Yes Na Ramirez 1 tablet Common Besylate Besylate [facility] Losartan Losartan Yes Na Ramirez 1 tablet Common Potassium-H Potassium-H S pirit CTZ CTZ [facility] Rizatriptan Rizatriptan Yes Na Ramirez 1 tablet Common Benzoate Benzoate as needed Sp joey one time [facility] Carbamazepi Carbamazepi Yes Na Ramirez 1 tablet Common ne ne [facility] Valtrex Valtrex Yes Na Ramirez 1 tablet Co mmon [facility] Sumatriptan Sumatriptan Yes Na Ramirez not Common defined [facility] Crestor Crestor Yes Na Ramirez 1 tablet Co mmon [facility] Rosuvastati Rosuvastati Yes Na Ramirez 1 tablet Common n Calcium n Calcium Spiri t [facility] Ventolin Ventolin Yes Na Ramirez 2 puffs as Common HFA HFA needed [facility] Breo Breo Yes Na Ramirez 1 puff Common Ellipta Ellipta [facility] Baclofen Baclofen Yes Na Ramirez 1 tablet Common with food Spirit or milk [facility] Omeprazole Omeprazole Yes Na Ramirez not Common defined [facility] Lisinopril Lisinopril Yes Na Ramirez 1 tablet Common [facility] Metoprolol Metoprolol Yes Na Ramirez 1 tablet Common Tartrate [facility] Amlodipine Amlodipine Yes Na Ramirez TAKE 1 Common Besylate Besylate TABLET BY joey MOUTH - CHI EVERY DAY [facility] Pantoprazol Pantoprazol Yes Na Ramirez TAKE 1 Common e Sodium e [facility] Immunizations Ordered Filled Immunization Date Status Comments [facility] e Immunization Name Name SARS-COV-2 COVID-19 2021-04-07 Completed Unive rsity of PFIZER VACCINE 00:00:00 [facility] Influenza High Dose 2021-04-07 Completed Unive rsity of 00:00:00 [facility] SARS-COV-2 COVID-19 2021-04-07 Completed Unive rsity of PFIZER VACCINE 00:00:00 [facility] Influenza High Dose 2021-04-07 Completed Unive rsity of 00:00:00 [facility] SARS-COV-2 COVID-19 2020-07-25 Completed Unive rsity of PFIZER VACCINE 00:00:00 [facility] SARS-COV-2 COVID-19 2020-07-25 Completed Unive rsity of PFIZER VACCINE 00:00:00 [facility] SARS-COV-2 COVID-19 2020-07-25 Completed Unive rsity of PFIZER VACCINE 00:00:00 [facility] SARS-COV-2 COVID-19 2020-07-25 Completed Unive rsity of PFIZER VACCINE 00:00:00 [facility] SARS-COV-2 COVID-19 2020-07-25 Completed Unive rsity of PFIZER VACCINE 00:00:00 [facility] SARS-COV-2 COVID-19 2020-07-25 Completed Unive rsity of PFIZER VACCINE 00:00:00 [facility] Pneumococcal 13 2020-05-07 Completed Universit y of Conjugate, PCV13 00:00:00 [facility] dical (Prevnar 13) Branch Pneumococcal 13 2020-05-07 Completed Universit y of Conjugate, PCV13 00:00:00 [facility] dical (Prevnar 13) Branch FluAD FluAD 2019-03-27 Completed [facility] - 00:00:00 [facility] Prevnar 13 Prevnar 13 2019-02-06 Completed [facility] - -Pneumonia Vaccine -Pneumonia Vaccine 00:00:00 [facility] Vital Signs Vital Name Observation Time Observation Value Comments Source Systolic blood 2022-01-03 16:10:00 121 mm[Hg] Univer sity of pressure [facility] Diastolic blood 2022-01-03 16:10:00 75 mm[Hg] Unive rsity of [facility] Heart rate 2022-01-03 16:10:00 65 /min [facility] Body temperature 2022-01-03 16:10:00 36.44 Pamela [facility] [place] [facility] Respiratory rate 2022-01-03 16:10:00 16 /min [facility] [place] [facility] Oxygen saturation in 2022-01-03 16:10:00 90 /min [facility] Arterial blood by [facility] Pulse oximetry [place] Body weight 2022-01-03 08:46:00 75.978 kg [facility] BMI 2022-01-03 08:46:00 30.64 kg/m2 [facility] Body height 2022-01-01 07:51:00 157.5 cm [facility] Systolic blood 2021-09-26 20:55:00 177 mm[Hg] Univer sity of pressure [facility] Diastolic blood 2021-09-26 20:55:00 88 mm[Hg] Unive rsity of pressure [facility] Heart rate 2021-09-26 20:49:00 64 /min Universi ty [facility] Body weight 2021-09-26 20:49:00 75.439 kg [facility] BMI 2021-09-26 20:49:00 30.42 kg/m2 [facility] Oxygen saturation in 2021-09-26 20:49:00 99 /min University Arterial blood by [facility] Pulse oximetry Branch Procedures Procedure Date / Time Performing Clinician Source Performed BASIC METABOLIC PANEL 2022-01-03 19:39:00 Earl Lovett [facility] (NA, K, CL, CO2, GLUCOSE, Medica l Branch BUN, CREATININE, CA) BASIC METABOLIC PANEL 2022-01-03 10:26:00 Sundeep Shoemaker [facility] (NA, K, CL, CO2, GLUCOSE, Medica l Branch BUN, CREATININE, CA) BASIC METABOLIC PANEL 2022-01-03 01:40:[facility] ([facility], K, CL, CO2, GLUCOSE, Tita J Medica l Branch BUN, CREATININE, CA) OSMOLALITY, SERUM OR 2022-01-02 19:31:00 Suhas [facility] PLASMA Tita J [facility] [place] URIC ACID 2022-01-02 17:54:00 Marianne Ramsay [facility] BASIC METABOLIC PANEL 2022-01-02 17:54:00 [facility] (NA, K, CL, CO2, GLUCOSE, Tita J Medica l Branch BUN, CREATININE, CA) MAGNESIUM 2022-01-02 09:56:00 Sundeep Shoemaker [facility] BASIC METABOLIC PANEL 2022-01-02 09:56:00 Sundeep Shoemaker [facility] (NA, K, CL, CO2, GLUCOSE, Medica l Branch BUN, CREATININE, CA) CBC WITH DIFF 2022-01-02 09:56:00 Mike [facility] GLYCOSYLATED HEMOGLOBIN 2022-01-02 09:56:00 Sundeep Shoemaker [facility] (A1C) Medical [place] BASIC METABOLIC PANEL 2022-01-02 01:05:00 Mike [facility] (NA, K, CL, CO2, GLUCOSE, Medica l Branch BUN, CREATININE, CA) OSMOLALITY URINE 2022-01-02 01:00:00 Pk [facility] POTASSIUM, URINE RANDOM 2022-01-02 00:59:00 [facility] SODIUM, URINE RANDOM 2022-01-02 00:59:00 [facility]OLIC PANEL 2022-01-01 20:41:00 [facility] ([facility], K, CL, CO2, GLUCOSE, Medica l Branch BUN, CREATININE, CA) CORTISOL AM 2022-01-01 15:52:00 Laurita [facility] OSMOLALITY, SERUM OR 2022-01-01 15:52:00 Louie Uribe [facility] PLASMA [facility] BASIC METABOLIC PANEL 2022-01-01 15:52:00 Laurita [facility] (NA, K, CL, CO2, GLUCOSE, Medica l Branch BUN, CREATININE, CA) VITAMIN D, 25-OH 2022-01-01 15:52:00 Lauriat [facility] PHOSPHORUS 2022-01-01 13:30:00 Laurita [facility] MAGNESIUM 2022-01-01 13:30:00 Laurita [facility] THYROID STIMULATING 2022-01-01 13:30:00 Louie Uribe [facility] HORMONE [facility] BASIC METABOLIC PANEL 2022-01-01 13:30:00 [facility] (NA, K, CL, CO2, GLUCOSE, Medica Branch BUN, CREATININE, CA) BASIC METABOLIC PANEL 2022-01-01 09:25:00 [facility] (NA, K, CL, CO2, GLUCOSE, Medica l Branch BUN, CREATININE, CA) COVID-19 (ID NOW RAPID 2022-01-01 06:14:00 Silverio Constantino [facility] TESTING) Medical Branch LAB ONLY COVID 2022-01-01 06:14:00 Silverio Constantino [facility] INTERPRETATION [facility] XR CHEST 1 VW 2022-01-01 05:30:50 Silverio Constantino [facility] CT ABDOMEN PELVIS W 2022-01-01 05:28:52 Silverio Constantino [facility] CONTRAST Medical Branch COMP. METABOLIC PANEL 2022-01-01 04:08:00 Silverio Constantino [facility] ([id number]) Medical [place] CBC WITH DIFF 2022-01-01 04:08:00 Silverio Constantino [facility] URINALYSIS 2022-01-01 04:02:00 Silverio Constantino [facility] NOTICE OF PRIVACY 2022-01-01 03:11:37 Doctor Unassigned, [facility] PRACTICES [place] [facility] [place] CONSENT/REFUSAL FOR 2022-01-01 03:11:15 Doctor Unassigned, [facility] DIAGNOSIS AND TREATMENT [place] [facility] [place] Encounters Start End Encounter Admission Attending Care Care Encounter Source Date/Time Date/Time Type Type Clinicians Facility Department ID 2021-07-13 Outpatient Ramirez, Na STLMLC STLMLC [id number] 2 Common 13:50:35 12817 [facility] 2021-07-13 Outpatient Ramirez, Na STLMLC STLMLC [id number] 2 Common 12:21:05 77631 [facility] 2021-07-13 Outpatient Ramirez, Na STLMLC STLMLC [id number] 2 Common 11:38:40 05974 [facility] 2021-07-13 Outpatient Ramirez, Na STLMLC STLMLC [id number] 2 Common 11:19:01 73081 [facility] 2021-07-13 Outpatient Ramirez, Na STLMLC STLMLC [id number] 2 Common 11:18:41 33974 [facility] 2021-07-13 Outpatient Ramirez, Na STLMLC STLMLC [id number] 2 Common 11:14:00 13511 [facility] 2022-01-04 2022-01-04 Transition MELONIE Hoover [id number] Univers 00:00:00 00:00:00 of Care Tigist ARCHER [id number] i [id number] [id number] [facility] 403 Branch 2021-12-31 2022-01-03 Inpatient X LAURITA [facility] JAMAL [id number] Univers 22:30:00 17:22:00 LOUIE ity of [facility] 2021-12-31 2022-01-03 [facility] Silverio Constantino [facility] 1.2.840. [id number] Univers 22:30:00 17:22:00 Encounter Olinda Mckeon [id number] ity of Louie Uribe [id number] [facility] [id number] [facility] 081 Branch 2022-01-03 2022-01-03 ambulatory STLMLC STLMLC [id number] Common 00:00:00 00:00:00 [facility] 2021-12-31 2021-12-31 Orders Doctor AMANDA [id number] Univers 00:00:00 00:00:00 Only Unassigned, MARGIE [id number] [facility] [id number] Horacio as [phone] [facility] 009 Branch 2021-12-15 2021-12-15 [facility] [id number] Univers 00:00:00 00:00:00 Reyes COKER [id number] [id number] [phone] Mn dical [facility] 059 [facility] 2021-12-12 2021-12-12 Outpatient YONY, [facility] [id number] 797 [place] 00:00:00 00:00:00 AYAN [address] 2021-12-06 2021-12-06 Outpatient YONY, [facility] [id number] [place] 00:00:00 00:00:00 AYAN [address] 2021-12-02 2021-12-02 ambulatory STLMLC STLMLC [id number] Common 00:00:00 00:00:00 [facility] 2021-12-01 2021-12-01 ambulatory STLMLC STLMLC [id number] Common 00:00:00 00:00:00 [facility] 2021-10-26 2021-10-26 [facility] [id number] [place] 00:00:00 00:00:00 DAVID [address] 2021-09-26 2021-09-26 Office Shey [facility] [id number] Univers 15:40:00 16:20:25 Visit Reyes COKER [id number] Nayla [id number] Jatinder BRINK [id number] [address] 2021-09-26 2021-09-26 Outpatient R [facility] [id number] Univers 15:40:00 16:20:25 REYES miramontes [facility] 2021-09-19 2021-09-19 ambulatory STLMLC STLMLC [id number] Common 00:00:00 00:00:00 [facility] 2021-08-15 2021-08-15 ambulatory STLMLC STLMLC [id number] Common 00:00:00 00:00:00 [facility] 2021-05-04 2021-05-04 Outpatient [facility], [facility] [id number] [address] [place] [address] 00:00:00 00:00:00 DAVID [address] 2021-05-04 2021-05-04 Outpatient [facility] [id number] [place] 00:00:00 00:00:[address] 2021-04-12 2021-04-12 Outpatient STLMLC STLMLC [id number] Common 00:00:00 00:00:00 [facility] 2021-04-12 2021-04-12 Outpatient STLMLC STLMLC [id number] Common 00:00:00 00:00:00 [facility] 2021-02-24 2021-02-24 Outpatient STLMLC STLMLC [id number] Common 00:00:00 00:00:00 [facility] 2020-12-29 2020-12-29 Outpatient STLMLC STLMLC [id number] Common 00:00:00 00:00:00 [facility] 2020-11-03 2020-11-03 Outpatient OOLUT, [facility] [id number] [place] 00:00:00 00:00:00 DAVID [address] 2020-11-01 2020-11-01 Outpatient OOLUT, [facility] [id number] 700 [place] 00:00:00 00:00:00 DAVID [address] 2020-11-01 2020-11-01 Outpatient [facility] [id number] 700 [place] 00:00:00 00:00:[address] 2020-11-01 2020-11-01 Outpatient [facility] [id number] 700 [place] 00:00:00 00:00:[address] 2020-08-30 2020-08-30 Outpatient OOLUT, [facility] [id number] [place] 00:00:00 00:00:00 DAVID [address] 2020-08-15 2020-08-15 Outpatient ROBBEN, [facility] [id number] [place] 00:00:00 00:00:00 FAIZAN [address] 2020-07-25 2020-07-25 Outpatient [facility] [id number] [place] 00:00:00 00:00:[address] 2020-07-05 2020-07-05 Outpatient STLMLC STLMLC [id number] Common 00:00:00 00:00:00 [facility] 2020-06-09 2020-06-09 Outpatient STLMLC STLMLC [id number] Common 00:00:00 00:00:00 [facility] 2020-06-07 2020-06-07 Outpatient STLMLC STLMLC [id number] Common 00:00:00 00:00:00 [facility] 2020-04-05 2020-04-05 Outpatient STLMLC STLMLC [id number] Common 00:00:00 00:00:00 [facility] 2020-02-18 2020-02-18 [facility] [id number] Common 14:00:00 14:00:[address] [place] [address] [facility] 2020-02-03 2020-02-03 Out[facility] [id number] Common 13:30:00 13:30:00 [address] [place] [address] [facility] 2020-02-03 2020-02-03 Out[facility] [id number] Common 11:05:00 11:05:00 [address] [place] [address] [facility] 2019-12-15 2019-12-15 Outpatient NIKITA LISY [facility] [id number] [place] 00:00:00 00:00:[address] 2019-12-10 2019-12-10 [facility] [id number] Common 14:48:00 14:48:00 [address] [place] [address] [facility] 2019-11-24 2019-11-24 Out[facility] [id number] Common 13:51:00 13:51:00 [address] [facility] [address] [facility] 2019-11-17 2019-11-17 Out[facility] [id number] Common 15:00:00 15:00:00 [place] [address] [facility] 2019-11-12 2019-11-12 Outpatient LISY SHELTON [facility] [id number] [place] 00:00:00 00:00:[address] 2019-11-03 2019-11-03 Outpatient OEVE [facility] [id number] [place] 00:00:00 00:00:00 DAVID [address] 2019-10-10 2019-10-10 [facility] [id number] Common 16:50:00 16:50:00 [address] [place] [address] [facility] 2019-10-07 2019-10-07 Out[facility] [id number] Common 14:20:00 14:20:00 [address] [place] [address] [facility] 2019-07-31 2019-07-31 Out[facility] [id number] Common 14:40:00 14:40:00 [address] [place] [address] [facility] 2019-06-27 2019-06-27 Out[facility] [id number] Common 15:00:00 15:00:00 [place] [address] [facility] 2019-06-24 2019-06-24 Outpatient AMANDA FLORES [facility] [id number] [place] 00:00:00 00:00:[address] 2019-06-24 2019-06-24 Outpatient AMANDA FLORES [facility] [id number] [place] 00:00:00 00:00:00 [address] 2019-06-19 2019-06-19 Outpatient RHONA [facility] [id number] [address] [place] [address] 00:00:00 00:00:00 DAVID [address] 2019-04-09 2019-04-09 [facility] [id number] Common 15:10:00 15:10:00 [address] [place] [address] [facility] 2019-03-27 2019-03-27 Outpatient [facility] [id number] Common 14:40:00 14:40:00 [address] [place] [address] [facility] 2019-02-13 2019-02-13 Outpatient [facility] [id number] Common 12:09:00 12:09:00 [address] [place] [address] [facility] 2019-02-06 2019-02-06 Outpatient [facility] [id number] Common 14:40:00 14:40:00 [address] [place] [address] [facility] 2018-08-22 2018-08-22 Outpatient [facility] [id number] Common 15:00:00 15:00:00 [place] [address] [facility] 2018-08-08 2018-08-08 Out[facility] [id number] Common 15:00:00 15:00:00 [address] [place] [address] [facility] 2018-07-10 2018-07-10 Outpatient Pino Ventura [id number] Common 14:15:00 14:15:00 t [place] Spir it uFaber [facility] Results Test Description Test Time Test Comments Results Result Comments Source BASIC METABOLIC PANEL (NA, K, CL, CO2, GLUCOSE, BUN, 2021-12 02:15:25 CREATININE, CA) Test Item Value Reference Range Interpretation Comme nts NA (test code = 2348230329) 128 mmol/L 135-145 L K (test code = 5465444597) 4.8 mmol/L 3.5-5 CL (test code = 9499262965) 92 mmol/L 98-108 L CO2 TOTAL (test code = 9837552394) 29 mmol/L 23-31 AGAP (test code = 5552311592) 2-16 BUN (test code = 8949813384) 13 mg/dL 7-23 GLUCOSE (test code = 0727325502) 115 mg/dL 70-110 H CREATININE (test code = 0.57 mg/dL 0.5-1.04 1551458532) CALCIUM (test code = 7707437215) 8.3 mg/dL 8.6-10.6 L eGFR (test code = 0154097079) mL/min/1.73m2 ROB (test code = ROB) Association of Glomerular Filtration Rate (GFR) and Staging of Kidney Disease* + +-------- + ------+| GFR (mL/min/1.73 m2) ?| With Kidney Damage ?| ?Without Kidney Damage+ +-- + +| ?>90 ?| ?Stage one ?| ? Normal ?+ +------- + -------+| ?60-89 ?| ?Stage two ?| ? Decreased GFR ? + +-------- + ------+| ?30-59 ?| ?Stage three ?| ? Stage three ? + +-------- + ------+| ?15-29 ?| ?Stage four ? | ? Stage four ?+ +------- + -------+| ?<15 (or dialysis) ? ?| ?Stage five ? | ? Stage five ?+ +------- + -------+ *Each stage assumes the associated GFR level has been in effect for at least three months. ?Stages 1 to 5, with or without kidney disease, indicate chronic kidney disease. Notes: Determination of stages one and two (with eGFR >59mL/min/1.73 m2) requires estimation of kidney damage for at least three months as defined by structural or functional abnormalities of the kidney, manifested by either:Pathological abnormalities or Markers of kidney damage (including abnormalities in the composition of the blood or urine or abnormalities in imaging tests). Lab Interpretation (test code = Abnormal 12957-0) [facility] 10:[facility]48 Test Item Value Reference Range Interpretation Comments MAGNESIUM (test code = 2734864341) 1.7 mg/dL 1.7-2.4 Lab Interpretation (test code = Normal 61959-8) [facility] METABOLIC PANEL (NA, K, CL, CO2, GLUCOSE, BUN, CREATININE, CA)2022-01-02 10:48:28 Test Item Value Reference Range Interpretation Comments NA (test code = 127 mmol/L 135-145 L 6045818681) K (test code = 4.4 mmol/L 3.5-5 5702438182) CL (test code = 95 mmol/L 98-108 L 2731039238) CO2 TOTAL (test code = 28 mmol/L 23-31 9572316670) AGAP (test code = 2-16 8768394689) BUN (test code = 9 mg/dL 7-23 3361172586) GLUCOSE (test code = 123 mg/dL 70-110 H 3858917563) CREATININE (test code = 0.51 mg/dL 0.5-1.04 8074869369) CALCIUM (test code = 8.1 mg/dL 8.6-10.6 L 5470651308) eGFR (test code = mL/min/1.73m2 7469061179) ROB (test code = ROB) Association of Glomerular Filtration Rate (GFR) and Staging of Kidney Disease* + --+ --+ ------+| GFR (mL/min/1.73 m2) ?| With Kidney Damage ?| ?Without Kidney Damage+ --------+ --------+ +| ?>90 ?| ?Stage one ?| ? Normal ?+ ---+ ---+ -------+| ?60-89 ?| ?Stage two ?| ? Decreased GFR ? + --+ --+ ------+| ?30-59 ?| ?Stage three ?| ? Stage three ? + --+ --+ ------+| ?15-29 ?| ?Stage four ? | ? Stage four ?+ ---+ ---+ -------+| ?<15 (or dialysis) ? ?| ?Stage five ? | ? Stage five ?+ ---+ ---+ -------+ *Each stage assumes the associated GFR level has been in effect for at least three months. ?Stages 1 to 5, with or without kidney disease, indicate chronic kidney disease. Notes: Determination of stages one and two (with eGFR >59mL/min/1.73 m2) requires estimation of kidney damage for at least three months as defined by structural or functional abnormalities of the kidney, manifested by either:Pathological abnormalities or Markers of kidney damage (including abnormalities in the composition of the blood or urine or abnormalities in imaging tests). Lab Interpretation Abnormal (test code = 28279-3) [facility] (A1C)2022-01-02 10:36:46 Test Item Value Reference Range Interpretation Comments HGB A1C (test code = 5.9 % 4-5.7 H 4548-4) ROB (test code = ROB) Reference RangesNormal: <5.7%Prediabetes: 5.7 - 6.4%Diabetes: > 6.5% Lab Interpretation (test Abnormal code = 11320-2) [facility] with [id number] 10:15:07 Test Item Value Reference Range Interpretation Comments WBC (test code = See_Comment [Automated 9387-2) message] The sy stem which generated this result transmitted reference range : 4.30 - 11.10 10*3/?L. The reference range was not used to interpret this result as normal/abnormal . RBC (test code = See_Comment L [Automated 306-2) message] The sy stem which generated this result transmitted reference range : 3.93 - 5.25 10*6/?L. The reference range was not used to interpret this result as normal/abnormal . HGB (test code = 10.2 g/dL 11.6-15 L 718-7) HCT (test code = 28.8 % 35.7-45.2 L 4544-3) MCV (test code = 87.5 fL 80.6-95.5 787-2) MCH (test code = 31.0 pg 25.9-32.8 785-6) MCHC (test code = 35.4 g/dL 31.6-35.1 H 786-4) RDW-SD (test code = 40.6 fL 39-49.9 72968-6) RDW-CV (test code = 12.6 % 12-15.5 788-0) PLT (test code = See_Comment L [Automated 777-3) message] The sy stem which generated this result transmitted reference range : 166 - 358 10*3/ ?L. The reference r carmela was not used to interpret this result as normal/abnormal . MPV (test code = 9.3 fL 9.5-12.9 L 91153-6) NRBC/100 WBC (test See_Comment [Automat ed code = 4954957285) message] The system which generated this result transmitted reference range : 0.0 - 10.0 /100 WBCs. The refer ence range was not u sed to interpret th is result as normal/abnormal . NRBC x10^3 (test code See_Comment [Auto mated = 9360161603) message] The s ystem which generated this result transmitted reference range : 10*3/?L. The reference range was not used to interpret this result as normal/abnormal . GRAN MAT (NEUT) % 68.7 % (test code = 770-8) IMM GRAN % (test code 1.00 % = 1075036027) LYMPH % (test code = 16.0 % 736-9) MONO % (test code = 9.4 % 5905-5) EOS % (test code = 4.4 % 713-8) BASO % (test code = 0.5 % 706-2) GRAN MAT x10^3(ANC) 4.17 10*3/uL 1.88-7.09 (test code = 3433152427) IMM GRAN x10^3 (test 0.06 10*3/uL 0-0.06 code = 6492269134) LYMPH x10^3 (test code 0.97 10*3/uL 1.32-3.29 L = 731-0) MONO x10^3 (test code 0.57 10*3/uL 0.33-0.92 = 742-7) EOS x10^3 (test code = 0.27 10*3/uL 0.03-0.39 711-2) BASO x10^3 (test code 0.03 10*3/uL 0.01-0.07 = 704-7) Lab Interpretation Abnormal (test code = 66824-7) [facility] METABOLIC PANEL (NA, K, CL, CO2, GLUCOSE, BUN, CREATININE, CA)2022-01-02 02:16:16 Test Item Value Reference Range Interpretation Comments NA (test code = 123 mmol/L 135-145 L 6035005319) K (test code = 4.2 mmol/L 3.5-5 4303597169) CL (test code = 89 mmol/L 98-108 L 9539961506) CO2 TOTAL (test code = 27 mmol/L 23-31 3264919192) AGAP (test code = 2-16 8828348939) BUN (test code = 12 mg/dL 7-23 1062163322) GLUCOSE (test code = 123 mg/dL 70-110 H 3175860994) CREATININE (test code = 0.67 mg/dL 0.5-1.04 2604915740) CALCIUM (test code = 7.8 mg/dL 8.6-10.6 L 7487824455) eGFR (test code = mL/min/1.73m2 7068307682) ROB (test code = ROB) Association of Glomerular Filtration Rate (GFR) and Staging of Kidney Disease* + --+ --+ ------+| GFR (mL/min/1.73 m2) ?| With Kidney Damage ?| ?Without Kidney Damage+ --------+ --------+ +| ?>90 ?| ?Stage one ?| ? Normal ?+ ---+ ---+ -------+| ?60-89 ?| ?Stage two ?| ? Decreased GFR ? + --+ --+ ------+| ?30-59 ?| ?Stage three ?| ? Stage three ? + --+ --+ ------+| ?15-29 ?| ?Stage four ? | ? Stage four ?+ ---+ ---+ -------+| ?<15 (or dialysis) ? ?| ?Stage five ? | ? Stage five ?+ ---+ ---+ -------+ *Each stage assumes the associated GFR level has been in effect for at least three months. ?Stages 1 to 5, with or without kidney disease, indicate chronic kidney disease. Notes: Determination of stages one and two (with eGFR >59mL/min/1.73 m2) requires estimation of kidney damage for at least three months as defined by structural or functional abnormalities of the kidney, manifested by either:Pathological abnormalities or Markers of kidney damage (including abnormalities in the composition of the blood or urine or abnormalities in imaging tests). Lab Interpretation Abnormal (test code = 24217-1) [id number] 17:40:53 Test Item Value Reference Range Interpretation Comments TSH (test code = See_Comment [Automated message] 8117639078) The system [employer] generated this result transmitted ref erence range: 0.45 - 4 .70 mIU/L. The refe rence range was not u sed to interpret this result as normal/abnor mal. Lab Interpretation (test Normal code = 49707-2) [facility]15 Test Item Value Reference Range Interpretation Comments MAGNESIUM (test code = 2442395238) 1.4 mg/dL 1.7-2.4 L Lab Interpretation (test code = Abnormal 38836-0) [facility] 17:08:55 Test Item Value Reference Range Interpretation Comments PHOSPHORUS (test code = 1923258443) 3.2 mg/dL 2.5-5 Lab Interpretation (test code = Normal 35345-1) [facility] (NA, K, CL, CO2, GLUCOSE, BUN, CREATININE, CA)2022-01-01 14:15:54 Test Item Value Reference Range Interpretation Comments NA (test code = 121 mmol/L 135-145 L 4124531090) K (test code = 4.0 mmol/L 3.5-5 5013903295) CL (test code = 89 mmol/L 98-108 L 3806219927) CO2 TOTAL (test code = 29 mmol/L 23-31 3328723043) AGAP (test code = 2-16 5240899754) BUN (test code = 8 mg/dL 7-23 5476616969) GLUCOSE (test code = 115 mg/dL 70-110 H 1898408249) CREATININE (test code = 0.46 mg/dL 0.5-1.04 L 4492273128) CALCIUM (test code = 7.8 mg/dL 8.6-10.6 L 8710396145) eGFR (test code = mL/min/1.73m2 1469431800) ROB (test code = ROB) Association of Glomerular Filtration Rate (GFR) and Staging of Kidney Disease* + --+ --+ ------+| GFR (mL/min/1.73 m2) ?| With Kidney Damage ?| ?Without Kidney Damage+ --------+ --------+ +| ?>90 ?| ?Stage one ?| ? Normal ?+ ---+ ---+ -------+| ?60-89 ?| ?Stage two ?| ? Decreased GFR ? + --+ --+ ------+| ?30-59 ?| ?Stage three ?| ? Stage three ? + --+ --+ ------+| ?15-29 ?| ?Stage four ? | ? Stage four ?+ ---+ ---+ -------+| ?<15 (or dialysis) ? ?| ?Stage five ? | ? Stage five ?+ ---+ ---+ -------+ *Each stage assumes the associated GFR level has been in effect for at least three months. ?Stages 1 to 5, with or without kidney disease, indicate chronic kidney disease. Notes: Determination of stages one and two (with eGFR >59mL/min/1.73 m2) requires estimation of kidney damage for at least three months as defined by structural or functional abnormalities of the kidney, manifested by either:Pathological abnormalities or Markers of kidney damage (including abnormalities in the composition of the blood or urine or abnormalities in imaging tests). Lab Interpretation Abnormal (test code = 42795-1) [facility] WITH [id number] 04:47:03 Test Item Value Reference Range Interpretation Comments WBC (test code = See_Comment H [Automated 6690-2) message] The sy stem which generated this result transmitted reference range : 4.30 - 11.10 10*3/?L. The reference range was not used to interpret this result as normal/abnormal . RBC (test code = See_Comment L [Automated 789-8) message] The sy stem which generated this result transmitted reference range : 3.93 - 5.25 10*6/?L. The reference range was not used to interpret this result as normal/abnormal . HGB (test code = 11.7 g/dL 11.6-15 718-7) HCT (test code = 33.0 % 35.7-45.2 L 4544-3) MCV (test code = 88.7 fL 80.6-95.5 787-2) MCH (test code = 31.5 pg 25.9-32.8 785-6) MCHC (test code = 35.5 g/dL 31.6-35.1 H 786-4) RDW-SD (test code = 40.8 fL 39-49.9 25563-5) RDW-CV (test code = 12.5 % 12-15.5 788-0) PLT (test code = See_Comment [Automated 777-3) message] The sy stem which generated this result transmitted reference range : 166 - 358 10*3/ ?L. The reference r carmela was not used to interpret this result as normal/abnormal . MPV (test code = 9.6 fL 9.5-12.9 95654-8) NRBC/100 WBC (test See_Comment [Automat ed code = 7878775150) message] The system which generated this result transmitted reference range : 0.0 - 10.0 /100 WBCs. The refer ence range was not u sed to interpret th is result as normal/abnormal . NRBC x10^3 (test code See_Comment [Auto mated = 9507742039) message] The s ystem which generated this result transmitted reference range : 10*3/?L. The reference range was not used to interpret this result as normal/abnormal . GRAN MAT (NEUT) % 74.3 % (test code = 770-8) IMM GRAN % (test code 1.10 % = 9261584724) LYMPH % (test code = 14.4 % 736-9) MONO % (test code = 7.3 % 5905-5) EOS % (test code = 2.6 % 713-8) BASO % (test code = 0.3 % 706-2) GRAN MAT x10^3(ANC) 8.50 10*3/uL 1.88-7.09 H (test code = 3935506313) IMM GRAN x10^3 (test 0.13 10*3/uL 0-0.06 H code = 0316634763) LYMPH x10^3 (test code 1.65 10*3/uL 1.32-3.29 = 731-0) MONO x10^3 (test code 0.84 10*3/uL 0.33-0.92 = 742-7) EOS x10^3 (test code = 0.30 10*3/uL 0.03-0.39 711-2) BASO x10^3 (test code 0.04 10*3/uL 0.01-0.07 = 704-7) Lab Interpretation Abnormal (test code = 27967-8) [facility] (78590[facility]2022-[facility]-01 04:39:45 Test Item Value Reference Range Interpretation Comments NA (test code = 121 mmol/L 135-145 L 5393684307) K (test code = 4.3 mmol/L 3.5-5 3138168408) CL (test code = 88 mmol/L 98-108 L 5084842733) CO2 TOTAL (test code = 24 mmol/L 23-31 9708257222) AGAP (test code = 2-16 0764577427) BUN (test code = 13 mg/dL 7-23 9148460637) GLUCOSE (test code = 148 mg/dL 70-110 H 7740393646) CREATININE (test code = 0.64 mg/dL 0.5-1.04 5893869916) TOTAL BILI (test code = 0.1 mg/dL 0.1-1.1 4780202767) CALCIUM (test code = 8.5 mg/dL 8.6-10.6 L 6667283070) T PROTEIN (test code = 6.4 g/dL 6.3-8.2 3304447969) ALBUMIN (test code = 4.0 g/dL 3.5-5 7786344604) ALK PHOS (test code = 69 U/L 34-122 2720859331) ALTv (test code = 33 U/L 5-35 2-6) AST(SGOT) (test code = 30 U/L 13-40 9151829313) eGFR (test code = mL/min/1.73m2 2641960494) ROB (test code = ROB) Association of Glomerular Filtration Rate (GFR) and Staging of Kidney Disease* + --+ --+ ------+| GFR (mL/min/1.73 m2) ?| With Kidney Damage ?| ?Without Kidney Damage+ --------+ --------+ +| ?>90 ?| ?Stage one ?| ? Normal ?+ ---+ ---+ -------+| ?60-89 ?| ?Stage two ?| ? Decreased GFR ? + --+ --+ ------+| ?30-59 ?| ?Stage three ?| ? Stage three ? + --+ --+ ------+| ?15-29 ?| ?Stage four ? | ? Stage four ?+ ---+ ---+ -------+| ?<15 (or dialysis) ? ?| ?Stage five ? | ? Stage five ?+ ---+ ---+ -------+ *Each stage assumes the associated GFR level has been in effect for at least three months. ?Stages 1 to 5, with or without kidney disease, indicate chronic kidney disease. Notes: Determination of stages one and two (with eGFR >59mL/min/1.73 m2) requires estimation of kidney damage for at least three months as defined by structural or functional abnormalities of the kidney, manifested by either:Pathological abnormalities or Markers of kidney damage (including abnormalities in the composition of the blood or urine or abnormalities in imaging tests). Lab Interpretation Abnormal (test code = 36782-6) [facility]"
== END 2021-12-30 11:40 | disposition home or self-care (01) | DRG 640 ==
LOC: ER 12:38 → ERHOLD 17:45 → 2ND 19:17
PROVIDERS: ADMIT Internal Medicine; ATTEND Internal Medicine
DX: E87.1 Hypo-osmolality and hyponatremia (principal); J18.9 Pneumonia, unspecified organism; N39.0 Urinary tract infection, site not specified; I27.20 Pulmonary hypertension, unspecified; J84.10 Pulmonary fibrosis, unspecified; G50.0 Trigeminal neuralgia; E86.0 Dehydration; K59.04 Chronic idiopathic constipation; E87.8 Other disorders of electrolyte and fluid balance, not elsewhere classified; E03.8 Other specified hypothyroidism; Z20.822 Contact with and (suspected) exposure to COVID-19
CPT/HCPCS: 36415; 71045; 74177; 80048; 80053; 80061; 80156; 81003; 81015; 82533; 83605; 83690; 83735; 83930; 83935; 83986; 84100; 84132; 84145; 84300; 84439; 84443; 84550; 85025; 87040; 87077; 87086; 87088; 87186; 94640; 94760; 96374; 96375; 99285; J0456; J1650; J2405; J3475; J3490; J7030; J7040; J7050; Q9967; U0003